=== PATIENT | male | born 1955 | race Caucasian/White ===

== ENCOUNTER 2019-03-14 10:57 | Emergency (ER) | payer OTHER ==
[2019-03-14 11:04] VITALS: BP 159/84; PULSE 69; TEMP 97.4; BMI 31.4
--- NOTE | 2019-03-14 11:37 | PDOC ---
History of Present Illness - General Chief Complaint: Injury Stated Complaint: RT ELBOW BOIL Time Seen by Provider: 03/14/19 11:19 History Source: Patient Exam Limitations: No Limitations - History of Present Illness Initial Comments: 63 yo M history CAD, HTN presents with R elbow mass that is bleeding. He states that he was seen in the wound care clinic in the past, was told that it was soft tissue, and referred to a general surgeon. That was approximately a month ago, he has not yet set up an evaluation with a surgeon. He states he was recently on vacation, was using a band to cover it, as it was unattractive to look at. He subsequently developed a wound on it, which is now bleeding. He attempted to place a gauze dressing, but it has continued to bleed. He takes aspirin and plavix. Past History - Past Medical History Allergies/Adverse Reactions: Allergies Allergy/AdvReac Type Severity Reaction Status Date / Time No Known Allergies Allergy Verified 03/14/19 10:59 Home Medications: Ambulatory Orders Diltiazem Cd [Cardizem Cd -] 120 mg PO DAILY #0 cap.cd.24h 04/09/14 Metoprolol Tartrate [Lopressor -] 100 mg PO BID #0 tablet 04/09/14 Aspirin [Adult Aspirin Regimen] 1 tab PO DAILY 03/14/19 Atorvastatin Calcium 1 tab PO HS 03/14/19 Clopidogrel Bisulfate [Clopidogrel] 1 tab PO DAILY 03/14/19 Losartan Potassium 100 mg PO DAILY 03/14/19 Cardiac Disorders: Yes (afib on eliquis- cardiac stents) COPD: No HTN: Yes Hypercholesterolemia: Yes - Immunization History Immunization Up to Date: Yes - Psycho Social/Smoking Cessation Hx Smoking History: Never smoked Have you smoked in the past 12 months: No Hx Alcohol Use: Yes (6-12) Drug/Substance Use Hx: No Substance Use Type: None Review of Systems - Review of Systems Able to Perform ROS?: Yes Comments:: GENERAL/CONSTITUTIONAL: No fever or chills. No weakness. HEAD, EYES, EARS, NOSE AND THROAT: No change in vision. No ear pain or discharge. No sore throat. MUSCULOSKELETAL: +Swelling over the R elbow with open wound, oozing blood. No neck or back pain. SKIN: +Ulcer to R elbow lesion NEUROLOGIC: No headache, vertigo, loss of consciousness, or change in strength/ sensation. ENDOCRINE: No increased thirst. No abnormal weight change. HEMATOLOGIC/LYMPHATIC: Takes ASA and plavix ALLERGIC/IMMUNOLOGIC: No hives or skin allergy. *Physical Exam - Vital Signs Last Vital Signs Temp Pulse Resp BP Pulse Ox 97.4 F L 69 18 159/84 100 03/14/19 11:00 03/14/19 11:00 03/14/19 11:00 03/14/19 11:00 03/14/19 11:00 - Physical Exam GENERAL: Awake, alert, and fully oriented, in no acute distress HEAD: No signs of trauma EYES: PERRLA, EOMI, sclera anicteric, conjunctiva clear ENT: Auricles normal inspection, hearing grossly normal, nares patent, oropharynx clear without exudates. Moist mucosa EXTREMITIES: R elbow with soft tissue mass, with ulcer present approximately 1.5 cm in diameter. +Oozing from the ulcer. FROM. Remainder of extremities with normal range of motion, no edema. No clubbing or cyanosis. No cords, erythema, or tenderness NEUROLOGICAL: Cranial nerves II through XII grossly intact. Normal speech, normal gait. Motor and sensation intact SKIN: Warm, dry, normal turgor, no rashes or lesions noted. Medical Decision Making - Medical Decision Making Surgicel placed to the ulcer, then gauze dressing. I arranged for him to follow up with Dr. Lafleur to evaluate the soft tissue mass for possible resection. Discharge - Discharge Information Problems reviewed: Yes Clinical Impression/Diagnosis: Soft tissue mass Condition: Stable Disposition: HOME - Admission No - Follow up/Referral Referrals: Jl Lafleur MD [Staff Physician] - - Patient Discharge Instructions Patient Printed Discharge Instructions: Skin Wound Additional Instructions: Please keep the dressing in place today unless it soaks through. If you need to change the bandage, you can replace the gauze and place an KARINA wrap to hold it in place (do not pull the wrap tightly, as it may worsen your condition). Follow up with Dr. Lafleur at [address] on the 1st floor at 2pm on SundayMarch 18. If you have heavy bleeding, fever, severe pain, or any other concerning symptoms , return to the ED immediately. - Post Discharge Activity
== END 2019-03-14 12:10 | disposition home or self-care (01) ==
LOC: JER 10:57
DX: R22.31 Localized swelling, mass and lump, right upper limb (principal); I25.10 Atherosclerotic heart disease of native coronary artery without angina pectoris; I10 Essential (primary) hypertension
CPT/HCPCS: 99281-25

== ENCOUNTER 2019-03-20 12:12 | Emergency (ER) | payer OTHER ==
[2019-03-20 12:34] VITALS: BP 138/79; PULSE 74; TEMP 98.4; BMI 31.4
--- NOTE | 2019-03-20 12:35 | PDOC ---
History of Present Illness - General Chief Complaint: Revisit,Wound Recheck Stated Complaint: WOUND CHECK Time Seen by Provider: 03/20/19 12:15 History Source: Patient Exam Limitations: No Limitations - History of Present Illness Initial Comments: 03/20/19 12:30 63 y/o male with wound on right elbow for many years, has a growth, has seen a surgeon Dr. Turner, went to [facility] and had it wraped. Had an MRI today and here in ER due to constant bleeding from wound. No pain. Denies fever or chills. Off Plavix for 2 days. Is this a multiple visit Asthma Patient?: No Past History - Past Medical History Allergies/Adverse Reactions: Allergies Allergy/AdvReac Type Severity Reaction Status Date / Time No Known Allergies Allergy Verified 03/20/19 12:19 Home Medications: Ambulatory Orders Diltiazem Cd [Cardizem Cd -] 120 mg PO DAILY #0 cap.cd.24h 04/09/14 Metoprolol Tartrate [Lopressor -] 100 mg PO BID #0 tablet 04/09/14 Aspirin [Adult Aspirin Regimen] 1 tab PO DAILY 03/14/19 Atorvastatin Calcium 1 tab PO HS 03/14/19 Clopidogrel Bisulfate [Clopidogrel] 1 tab PO DAILY 03/14/19 Losartan Potassium 100 mg PO DAILY 03/14/19 Cardiac Disorders: Yes (afib on eliquis- cardiac stents) COPD: No HTN: Yes Hypercholesterolemia: Yes - Immunization History Immunization Up to Date: Yes - Psycho Social/Smoking Cessation Hx Smoking History: Never smoked Have you smoked in the past 12 months: No Hx Alcohol Use: Yes Drug/Substance Use Hx: No Substance Use Type: None Review of Systems - Review of Systems Able to Perform ROS?: Yes Is the patient limited Slovenian proficient: No Constitutional: No: Chills, Fever Respiratory: No: Cough, Shortness of Breath Musculoskeletal: No: Back Pain, Joint Pain Integumentary: Yes: Lesions. No: Bruising, Erythema All Other Systems: Reviewed and Negative *Physical Exam - Vital Signs Last Vital Signs Temp Pulse Resp BP Pulse Ox 98.4 F 74 16 138/79 99 03/20/19 12:13 03/20/19 12:13 03/20/19 12:13 03/20/19 12:13 03/20/19 12:13 - Physical Exam General Appearance: Yes: Nourished, Appropriately Dressed. No: Apparent Distress HEENT: positive: Normal ENT Inspection, Normal Voice Neck: positive: Trachea midline, Normal Thyroid, Supple. negative: Tender Respiratory/Chest: positive: Lungs Clear, Normal Breath Sounds. negative: Chest Tender Cardiovascular: positive: Regular Rhythm, Regular Rate, S1, S2. negative: Edema , JVD, Murmur Vascular Pulses: Femoral (R): 4+, Femoral (L): 4+, Carotid (R): 4+, Carotid (L) : 4+, Dorsalis-Pedis (R): 4+, Doralis-Pedis (L): 4+ Lymphatic: negative: Adenopathy, Tenderness, Other Extremity: positive: Normal Capillary Refill. 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, Fully Oriented, Alert, Normal Mood/ Affect, Normal Response, Motor Strength 5/ ED Treatment Course - ADDITIONAL ORDERS Additional order review: 03/20/19 12:33 Right elbow wound non infected, will need wound clinic follow up and surgical removal Will rewrap Return as needed Discharge - Discharge Information Problems reviewed: Yes Clinical Impression/Diagnosis: Soft tissue mass Condition: Good Disposition: HOME - Admission No - Follow up/Referral Referrals: Gil Borja MD [Primary Care Provider] - - Patient Discharge Instructions Patient Printed Discharge Instructions: DI for Wound Infection Additional Instructions: Keep area wrapped Follow up with specialist for removal and await MRI results Call PMD to see when to restart Plavix If worsen return to ER - Post Discharge Activity
== END 2019-03-20 12:40 | disposition home or self-care (01) ==
LOC: FER 12:12
DX: Z48.01 Encounter for change or removal of surgical wound dressing (principal)
CPT/HCPCS: 99281-25

== ENCOUNTER 2019-03-25 11:09 | Inpatient (IN) | payer OTHER ==
--- NOTE | 2019-03-25 12:16 | PDOC ---
History of Present Illness - General Chief Complaint: Wound Stated Complaint: SENT FROM WOUND CARE Time Seen by Provider: 03/25/19 12:10 - History of Present Illness Initial Comments: 03/25/19 15:50 63 y/o M hx of HTN, afib presents to the ER with right forearem swelling. He has had a right olecranon mass for years and devellped a wound at the side last month. Previous MRI and x-rays had been done showing a non-calcified mass. within the last 2 days, he has had increased forearm swelling, erythema and tenderness. He endorses chills with no fevers. Past History - Past Medical History Allergies/Adverse Reactions: Allergies Allergy/AdvReac Type Severity Reaction Status Date / Time No Known Allergies Allergy Verified 03/25/19 11:31 Home Medications: Ambulatory Orders Diltiazem Cd [Cardizem Cd -] 120 mg PO DAILY #0 cap.cd.24h 04/09/14 Aspirin [Adult Aspirin Regimen] 1 tab PO DAILY 03/14/19 Atorvastatin Calcium 1 tab PO HS 03/14/19 Losartan Potassium 100 mg PO DAILY 03/14/19 Clopidogrel Bisulfate [Plavix] 75 mg PO DAILY 03/25/19 Metoprolol Tartrate [Lopressor -] 100 mg PO DAILY 03/25/19 Amoxicillin/Potassium Clav [Augmentin 875-125 Tablet] 1 each PO BID 10 Days #20 tablet MDD two 03/31/19 Acetaminophen [Tylenol] 650 mg PO Q6H #30 capsule MDD 4 04/01/19 Cardiac Disorders: Yes (afib on eliquis- cardiac stents) COPD: No HTN: Yes Hypercholesterolemia: Yes - Immunization History Immunization Up to Date: Yes - Psycho Social/Smoking Cessation Hx Smoking History: Never smoked Have you smoked in the past 12 months: No Information on smoking cessation initiated: No Hx Alcohol Use: No Drug/Substance Use Hx: No Substance Use Type: None *Physical Exam - Vital Signs Last Vital Signs Temp Pulse Resp BP Pulse Ox 99.7 F H 66 17 119/54 L 96 03/25/19 11:32 03/25/19 11:32 03/25/19 11:32 03/25/19 11:32 03/25/19 11:32 - Physical Exam 03/25/19 13:12 GENERAL: Awake, alert, and fully oriented, in no acute distress HEAD: No signs of trauma, normocephalic, atraumatic EYES: PERRLA, EOMI, sclera anicteric, conjunctiva clear ENT: Auricles normal inspection, hearing grossly normal, nares patent, oropharynx clear without exudates. Moist mucosa NECK: Normal ROM, supple, no lymphadenopathy, JVD, or masses LUNGS: No distress, speaks full sentences, clear to auscultation bilaterally HEART: Irregular rhythm, normal rate. normal S1 and S2, systolic murmur, rubs or gallops, peripheral pulses normal and equal bilaterally. ABDOMEN: Soft, nontender, normoactive bowel sounds. No guarding, no rebound. No masses EXTREMITIES : Normal inspection, Normal range of motion, no edema. No clubbing or cyanosis NEUROLOGICAL: Cranial nerves II through XII grossly intact. Normal speech, normal gait, no focal sensorimotor deficits SKIN: Erythma of right arm ED Treatment Course - LABORATORY CBC & Chemistry Diagram: 04/01/19 06:35 04/01/19 06:35 Medical Decision Making - Medical Decision Making 03/25/19 13:44 Cellulitis vs osteomyeltits secondary to right elbow mass with central wound -cbc, cmp, blood culture, wound culture -x-rays -mri done 5 days ago results as below large heterogenous mass of the posterior aspect of elbow with cystic changes in the central aspect. nonspecific in etiology may represent a synovial tumor of the olecranon bursa or mass in subcutaneous fat. -IV vancomycin 03/25/19 14:25 CXR: no acute chest pathology Elbow x-ray: no acute fracture, dislocation/radiopaque foreign body, non calcifiedmass forearm x-ray/: olecranon soft tissue swelling with arthritic changes, no sign of blastic or lytic changes hand x-ray: degenerative changes with partially flexed digits and a healed fracure deformity of the 4th metacarpal. vascular calcifications and soft tissue swellilng -admitted for cellulitis treament 04/02/19 21:49 Discharge - Discharge Information Problems reviewed: Yes Clinical Impression/Diagnosis: Cellulitis Condition: Improved Disposition: HOME - Follow up/Referral - Patient Discharge Instructions - Post Discharge Activity
[2019-03-25 13:33] LABS: BASO % 0.4 % (0-2.0); EOS % 0.6 % (0-4.5); HEMATOCRIT 31.1 % (35.4-49); HEMOGLOBIN 10.8 GM/dL (11.7-16.9); MCH 34.6 pg (25.7-33.7); MCHC 34.8 g/dl (32.0-35.9); MEAN CELL VOLUME 99.4 fl (80-96); MEAN PLT VOLUME 8.3 fl (7.5-11.1); MONO % 11.3 % (3.8-10.2); NEUT % 77.7 % (42.8-82.8); PLATELET COUNT 137 K/MM3 (134-434); RBC 3.13 M/mm3 (4.00-5.60); RDW 12.7 % (11.9-15.9); WHITE BLOOD COUNT 10.2 K/mm3 (4.0-10.0)
[2019-03-25] MEDS ORDERED: VANCOMYCIN 1 GM in D5W (PRE-DOCKED) 1,000 MG/250 ML IVPB ONE (13:43)
[2019-03-25 13:53] LABS: INR 1.09 (0.83-1.09); PROTHROMBIN TIME (PATIENT) 12.9 SEC (9.7-13.0)
[2019-03-25 13:56] LABS: ACTIVATED PTT 33.1 SECONDS (25.2-36.5)
[2019-03-25] MEDS ORDERED: VANCOMYCIN 1 GRAM (PRE-DOCKED) 1,000 MG/250 ML BAG IVPB ONE (14:53)
[2019-03-25 16:05] LABS: ERYTHROCYTE SEDIMENTATION RATE 107 mm/hr (0-20)
--- NOTE | 2019-03-25 16:05 | PDOC ---
Attending Attestation - Resident Resident Name: Mag Scott - ED Attending Attestation I have performed the following: I have examined & evaluated the patient, The case was reviewed & discussed with the resident, I agree w/resident's findings & plan - HPI HPI: 03/25/19 16:01 63-year-old male sent from wound clinic for treatment of a now infected chronic right elbow mass, previously imaged but recently ruptured with serosanguineous discharge, now with swelling and discomfort to the forearm and hand. - Physicial Exam PE: 03/25/19 16:02 Low-grade fever, vitals otherwise stable Large right elbow soft tissue mass with ulcerated skin and serosanguineous/ purulent discharge. Soft tissue swelling with erythema and warmth circumferentially distal to the elbow including the hand. Neurovascular intact distally with full range of motion of elbow/wrist/hand joints - Medical Decision Making 03/25/19 16:03 63-year-old male with chronic soft tissue mass of right elbow now with superimposed infection and right arm cellulitis. Low-grade fever but hemodynamically stable and neurovascularly intact. labs, wound cx doppler to r/o mechanical venous obstruction iv abx admit for cellulitis and further surgical evaluation Heart Score/ECG Review #1 ECG reviewed & interpreted by me at: 01:53 General ECG Interpretation: Sinus Rhythm, Normal Rate (71), Normal Intervals ( qtc 417), No acute ischemic changes
[2019-03-25 16:16] LABS: ALBUMIN 3.5 g/dl (3.4-5.0); BILIRUBIN,TOTAL 1.4 mg/dL (0.2-1); BLOOD UREA NITROGEN 19.4 mg/dL (7-18); CALCIUM 8.9 mg/dL (8.5-10.1); CREATININE 1.7 mg/dL (0.55-1.3); POTASSIUM 4.6 mmol/L (3.5-5.1); TOT PROT 7.3 g/dl (6.4-8.2)
[2019-03-25] MEDS: SODIUM CHLORIDE 1,000 ML IV SCH (17:31)
[2019-03-25] MEDS: AMPICILLIN NA/SULBACTAM NA 3 GM in SODIUM CHLORIDE 100 ML IVPB SCH ×2 (18:38→22:53)
[2019-03-25] MEDS: ATORVASTATIN CA 80 MG TABLET (FP) PO SCH (22:53)
[2019-03-25 23:27] VITALS: BMI 32.5
[2019-03-25] MEDS ORDERED: PNEUMOC 13-VAL CONJ-DIP CRM/PF 0.5 ML DISP.SYRIN IM ONE (23:27)
[2019-03-25] MEDS ORDERED: PT OWN MED DRAWER 7, Y5N ONE (23:34)
[2019-03-26] MEDS: ACETAMINOPHEN 325 MG TABLET (FP) PO PRN (02:00)
[2019-03-26] MEDS ORDERED: PT OWN MED DRAWER 7, Y5N ONE ×5 (02:19→20:16)
[2019-03-26] MEDS: AMPICILLIN NA/SULBACTAM NA 3 GM in SODIUM CHLORIDE 100 ML IVPB SCH ×4 (02:45→21:55)
[2019-03-26] MEDS ORDERED: VANCOMYCIN 1 GRAM (PRE-DOCKED) 1,000 MG/250 ML BAG IVPB SCH (04:00)
--- NOTE | 2019-03-26 08:14 | HP ---
Admitting History and Physical - Primary Care Physician PCP: Gil Borja - Admission Chief Complaint: Right upper extremity pain and swelling History of Present Illness: 63 years male history of hypertension, CAD status post 2 stent, hypercholesteremia, chronic right elbow swelling/soft tissue mass as per patient in December the swelling started leaking, on March 14, 2019 evaluated ED and he was referred to wound care clinic subsequently seen by Dr. Lafleur underwent MRI on March 20 2019 that shows large effusion large suspicious mass posterior to elbow, non-calcified with cystic change in the center possibility of synovitis/subcutaneous/olecranon mass or tumor. That got infected currently following with the wound care center, recently had MRI right elbow that shows soft tissue swelling at the elbow posteriorly with central liquefaction, yesterday in wound care center worsening pain, erythema and swelling noticed transferred to ED for further evaluation and IV antibiotics patient recently has no antibiotic, on arrival mild elevated WBC, right upper extremity Doppler ultrasound negative for any DVT admitted for IV antibiotic and evaluation by orthopedics History Source: Patient - Smoking History Smoking history: Never smoked Have you smoked in the past 12 months: No - Alcohol/Substance Use Hx Alcohol Use: No Home Medications - Allergies Allergies/Adverse Reactions: Allergies Allergy/AdvReac Type Severity Reaction Status Date / Time No Known Allergies Allergy Verified 03/25/19 11:31 - Home Medications Home Medications: Ambulatory Orders Diltiazem Cd [Cardizem Cd -] 120 mg PO DAILY #0 cap.cd.24h 04/09/14 Aspirin [Adult Aspirin Regimen] 1 tab PO DAILY 03/14/19 Atorvastatin Calcium 1 tab PO HS 03/14/19 Losartan Potassium 100 mg PO DAILY 03/14/19 Clopidogrel Bisulfate [Plavix] 75 mg PO DAILY 03/25/19 Metoprolol Tartrate [Lopressor -] 100 mg PO DAILY 03/25/19 Family Medical History Family History: Unremarkable Review of Systems - Review of Systems Constitutional: reports: Fever. denies: Lethargy, Malaise, Night Sweats Eyes: denies: Blind Spots, Blurred Vision, Double Vision, Eye Pain HENT: denies: Difficult Swallowing, Ear Discharge, Ear Pain, Epistaxis Neck: denies: Decreased ROM, Lumps, Pain on Movement, Stiffness Cardiovascular: denies: Chest Pain, Edema, Palpitations, Shortness of Breath Respiratory: denies: Cough, Exercise Intolerance, Hemoptysis, Orthopnea Gastrointestinal: denies: Abdominal Pain, Bloating, Constipation, Diarrhea Genitourinary: denies: Burning, Discharge, Dysuria, Flank Pain Musculoskeletal: reports: Joint Pain (Right elbow cellulitis and discharging swelling). denies: Back Pain, Crepitus, Decreased ROM, Extremity Pain Integumentary: reports: Erythema (Right upper extremity) Neurological: denies: Change in LOC, Change in Speech, Confusion Endocrine: denies: Excessive Sweating, Flushing Hematology/Lymphatic: denies: Easily Bruised, Excessive Bleeding, Swollen Glands Psychiatric: denies: Altered Sleep Pattern, Anxiety, Depression Physical Examination Vital Signs: Vital Signs Temperature 98.2 F 03/26/19 06:00 Pulse Rate 79 03/26/19 06:00 Respiratory Rate 18 03/26/19 06:00 Blood Pressure 134/83 03/26/19 06:00 O2 Sat by Pulse Oximetry (%) 99 03/26/19 04:54 General: Middle-aged, comfortable, not in distress HEENT; mucous membranes moist, no anemia, no jaundice, PERRLA, no nystagmus Neck: No JVD, supple, no bruit, thyroid palpably normal, normal carotid pulsations. Chest: Nontender, clear to auscultation bilaterally/bilateral wheezing/ bilateral basal rales. CVS: S1-S2 regular/irregular no murmur/gallop/rub Abdomen: Nondistended, soft, bowel sounds present. Extremities: Right elbow swelling with discharge, right upper extremity edema and tenderness, no edema feet., No calf tenderness, pulses present PROPERTY COORDINATOR: AO X3 , no gross motor sensory deficit Labs: CBC, BMP 03/25/19 12:55 03/25/19 12:55 Imaging - Results Chest X-ray: Report Reviewed (No acute changes) X-ray: Report Reviewed (Right elbow: Soft tissue swelling) MRI: Report Reviewed (Right elbow: March 20 2019, large soft tissue mass posterior to right elbow homogeneous, central cystic changes.) EKG: Report Reviewed (Normal sentiment [address]-T changes.) Problem List - Problems (1) Cellulitis Assessment/Plan: Continue IV Unasyn, vancomycin, wound care consult, ID consult, elevation of pain, pain control follow-up cultures we will follow-up orthopedic recommendation Problems reviewed: Yes Code(s): L03.90 - CELLULITIS, UNSPECIFIED (2) Coronary artery disease Assessment/Plan: Status post stent continue Plavix, beta-blockers and statin Problems reviewed: Yes Code(s): I25.10 - ATHSCL HEART DISEASE OF [place] CORONARY ARTERY W/O ANG PCTRS (3) Hypertension Assessment/Plan: Controlled continue home medication Problems reviewed: Yes Code(s): I10 - ESSENTIAL (PRIMARY) HYPERTENSION (4) Hypercholesterolemia Assessment/Plan: Continues to Problems reviewed: Yes Code(s): E78.00 - PURE HYPERCHOLESTEROLEMIA, UNSPECIFIED (5) Atrial fibrillation with RVR Assessment/Plan: Not on anticoagulation rate controlled continue diltiazem and metoprolol Problems reviewed: Yes Code(s): I48.91 - UNSPECIFIED ATRIAL FIBRILLATION (6) Soft tissue mass Assessment/Plan: Right elbow soft tissue mass we will follow-up orthopedic recommendations. Problems reviewed: Yes Code(s): M79.89 - OTHER SPECIFIED SOFT TISSUE DISORDERS Assessment/Plan Active Medications Acetaminophen (Tylenol -) 650 mg PO Q6H PRN PRN Reason: PAIN LEVEL 5-10 Last Admin: 03/26/19 02:00 Dose: 650 mg Aspirin (Ecotrin -) 81 mg PO DAILY [facility] Atorvastatin Calcium (Lipitor -) 80 mg PO HS [facility] Last Admin: 03/25/19 22:53 Dose: 80 mg Clopidogrel Bisulfate (Plavix -) 75 mg PO DAILY [facility] Diltiazem HCl (Cardizem Cd -) 120 mg PO DAILY [facility] Enoxaparin Sodium (Lovenox -) 40 mg SQ DAILY [facility] Ampicillin Sodium/Sulbactam (Sodium 3 gm/ Sodium Chloride) 100 mls @ 200 mls/ hr IVPB Q6H-IV [facility] Last Admin: 03/26/19 02:45 Dose: 200 mls/hr Vancomycin HCl 1,000 mg/ (Dextrose) 250 mls @ 166.667 mls/hr IVPB Q12H [facility]; Protocol Sodium Chloride (Normal Saline -) 1,000 mls @ 75 mls/hr IV ASDIR [facility] Last Admin: 03/25/19 17:31 Dose: 75 mls/hr Vancomycin HCl (Vancomycin (Pre-Docked)) 1,000 mg in 250 mls @ 166.667 mls/hr IVPB Q12H [facility]; Protocol Stop: 03/26/19 17:29 Last Admin: 03/26/19 04:20 Dose: 166.667 mls/hr Losartan Potassium (Cozaar -) 100 mg PO DAILY [facility] Metoprolol Tartrate (Lopressor -) 100 mg PO DAILY [facility] Pneumococcal 13-Valent Conj Vacc (Prevnar 13 Syringe -) 0.5 ml IM .ONCE ONE Stop: 03/25/19 23:28
[2019-03-26 08:38] LABS: BASO % 0.4 % (0-2.0); EOS % 1.7 % (0-4.5); HEMATOCRIT 28.3 % (35.4-49); HEMOGLOBIN 9.9 GM/dL (11.7-16.9); LYMPH % 15.3 % (8-40); MCH 34.5 pg (25.7-33.7); MCHC 34.8 g/dl (32.0-35.9); MEAN CELL VOLUME 99.2 fl (80-96); MEAN PLT VOLUME 8.1 fl (7.5-11.1); MONO % 11.4 % (3.8-10.2); NEUT % 71.2 % (42.8-82.8); PLATELET COUNT 108 K/MM3 (134-434); RBC 2.86 M/mm3 (4.00-5.60); RDW 12.6 % (11.9-15.9)
[2019-03-26 08:56] LABS: BLOOD UREA NITROGEN 19.6 mg/dL (7-18); CALCIUM 8.3 mg/dL (8.5-10.1); CREATININE 1.4 mg/dL (0.55-1.3)
[2019-03-26] MEDS ORDERED: PATIENT'S OWN MEDICATION (NON-FORMULARY) (Losartan Potassium [Losartan Potassium] 100 MG) PO SCH (10:00)
[2019-03-26] MEDS ORDERED: PNEUMOCOCCAL 23 VACCINE 0.5 ML VIAL IM ONE (10:00)
[2019-03-26] MEDS ORDERED: CLOPIDOGREL BISULFATE 75 MG TABLET (FP) PO SCH (10:00)
[2019-03-26] MEDS ORDERED: ENOXAPARIN NA (PORCINE) 40 MG/0.4 ML DISP.SYRIN SQ SCH (10:00)
[2019-03-26] MEDS ORDERED: ASPIRIN COATED 81 MG TABLET.EC PO SCH (10:00)
[2019-03-26] MEDS: METOPROLOL TARTRATE 50 MG TABLET (FP) PO SCH (10:02)
[2019-03-26] MEDS: LOSARTAN POTASSIUM 50 MG TABLET (FP) PO SCH (10:03)
--- NOTE | 2019-03-26 10:46 | CON.ID ---
Consult Consult Specialty:: infectious diseases Referred by:: christoph moreno Reason for Consultation:: swelling and cellulitis of the arm - Alcohol/Substance Use Hx Alcohol Use: No - Smoking History Smoking history: Never smoked Have you smoked in the past 12 months: No Home Medications - Allergies Allergies/Adverse Reactions: Allergies Allergy/AdvReac Type Severity Reaction Status Date / Time No Known Allergies Allergy Verified 03/25/19 11:31 - Home Medications Home Medications: Ambulatory Orders Diltiazem Cd [Cardizem Cd -] 120 mg PO DAILY #0 cap.cd.24h 04/09/14 Aspirin [Adult Aspirin Regimen] 1 tab PO DAILY 03/14/19 Atorvastatin Calcium 1 tab PO HS 03/14/19 Losartan Potassium 100 mg PO DAILY 03/14/19 Clopidogrel Bisulfate [Plavix] 75 mg PO DAILY 03/25/19 Metoprolol Tartrate [Lopressor -] 100 mg PO DAILY 03/25/19 Physical Exam Vital Signs: Vital Signs Temperature 98.1 F 03/26/19 09:31 Pulse Rate 101 H 03/26/19 09:31 Respiratory Rate 18 03/26/19 09:31 Blood Pressure 127/65 03/26/19 09:31 O2 Sat by Pulse Oximetry (%) 99 03/26/19 04:54 Labs: CBC, BMP 03/26/19 07:10 03/26/19 07:10
--- NOTE | 2019-03-26 11:01 | EKG ---
Test Reason : Blood Pressure : / mmHG Vent. Rate : 071 BPM Atrial Rate : 071 BPM P-R Int : 166 ms QRS Dur : 086 ms QT Int : 384 ms P-R-T Axes : 036 -05 017 degrees QTc Int : 417 ms NORMAL SINUS RHYTHM NORMAL ECG WHEN COMPARED WITH ECG OF 03-APR-2014 23:32, SINUS RHYTHM HAS REPLACED ATRIAL FIBRILLATION Confirmed by Chong Pepe MD ([id number]) on 03/26/2019 11:01:13 AM Referred By: Confirmed By:Chong Pepe MD
[2019-03-26] MEDS: VANCOMYCIN 1,000 MG in DEXTROSE 5%-WATER - 250 ML IVPB SCH ×2 (13:18→13:19)
--- NOTE | 2019-03-26 13:34 | PN ---
Progress Note (short form) - Note Progress Note: Pt seen and examined. He is a 63 year old right hand dominant male patient who hs had a large right elbow olecranon bursitis/mass for the past 8-10 years. It recently became infected. He came to the [facility] wound care clinic. Now he has been admitted, and is on IV Vancomycin and Unasyn. He states the clinical picture has improved. He was on Elquis until 2 days ago, got Plavix today, and is on SQ Lovenox AVSS although HR now 101 WBC decreased to 7.0 ESR 107 on 03-25-2019 wound cultures + PE Pt A&O x 3, not septic, appears very comfortable RUE is grossly NVI Good ROM of the right elbow, forearm, wrist, fingers + open wound, about 2" x 2" on the right olecranon bursa, + oozing pus, looks to be chronically infected The olecranon bursa is huge + chronic skin changes. vascular compromise over the bursa, dusky skin Wider area of cellulitis X-rays Show a large soft tissue mass, no acute bony pathology Imp 63 yo M with a long standing, chronic olecranon bursitis, perhaps something more, also chronically infected. Rec I am recommending surgery, olecranon bursa/mass excision. Tentatively put on the schedule for tomorrow 8am. Will see if OR can accomodate. Details of the surgery discussed with pt. He understands there could be significant skin dehiscence, wound breakdown, continued infection, need for additional surgery including skin grafts, wound care , etc. We need medical clearance for tomorrow. He is still on Plavix and Lovenox and was on Eliquis until very recently so we may have to delay surgery until yolanda am, or even next week. There is no emergency, he has had this for 8-10 years. NPO after midnight tonight
[2019-03-26] MEDS: VANCOMYCIN HCL 1,500 MG in DEXTROSE 5%-WATER - 500 ML IVPB SCH (14:40)
[2019-03-26] MEDS: SODIUM CHLORIDE 1,000 ML IV SCH (19:06)
[2019-03-26] MEDS: ATORVASTATIN CA 80 MG TABLET (FP) PO SCH (22:03)
[2019-03-27] MEDS: ACETAMINOPHEN 325 MG TABLET (FP) PO PRN ×2 (00:12→23:34)
[2019-03-27] MEDS ORDERED: PT OWN MED DRAWER 7, Y5N ONE ×5 (03:49→21:43)
[2019-03-27] MEDS: AMPICILLIN NA/SULBACTAM NA 3 GM in SODIUM CHLORIDE 100 ML IVPB SCH ×4 (03:53→21:56)
[2019-03-27] MEDS: SODIUM CHLORIDE 1,000 ML IV SCH ×2 (03:54→22:03)
--- NOTE | 2019-03-27 09:21 | PN ---
Progress Note, Physician Chief Complaint: Feels less pain and swelling History of Present Illness: 63 years male history of hypertension, CAD status post 2 stent, hypercholesteremia, chronic right elbow swelling/soft tissue mass as per patient in December the swelling started leaking, on March 14, 2019 evaluated ED and he was referred to wound care clinic subsequently seen by Dr. Lafleur underwent MRI on March 20 2019 that shows large effusion large suspicious mass posterior to elbow, non-calcified with cystic change in the center possibility of synovitis/subcutaneous/olecranon mass or tumor. That got infected currently following with the wound care center, recently had MRI right elbow that shows soft tissue swelling at the elbow posteriorly with central liquefaction, admitted with worsening edema and cellulitis with discharge, evaluated by orthopedic surgery recommended I&D. - Current Medication List Current Medications: Active Medications Acetaminophen (Tylenol -) 650 mg PO Q6H PRN PRN Reason: PAIN LEVEL 5-10 Last Admin: 03/27/19 00:12 Dose: 650 mg Atorvastatin Calcium (Lipitor -) 80 mg PO HS [facility] Last Admin: 03/26/19 22:03 Dose: 80 mg Diltiazem HCl (Cardizem Cd -) 120 mg PO DAILY [facility] Last Admin: 03/26/19 10:24 Dose: 120 mg Ampicillin Sodium/Sulbactam (Sodium 3 gm/ Sodium Chloride) 100 mls @ 200 mls/ hr IVPB Q6H-IV [facility] Last Admin: 03/27/19 03:53 Dose: 200 mls/hr Sodium Chloride (Normal Saline -) 1,000 mls @ 75 mls/hr IV ASDIR [facility] Last Admin: 03/27/19 03:54 Dose: 75 mls/hr Vancomycin HCl 1,500 mg/ (Dextrose) 500 mls @ 250 mls/hr IVPB Q24H [facility]; Protocol Last Admin: 03/26/19 14:40 Dose: 250 mls/hr Losartan Potassium (Cozaar -) 100 mg PO DAILY [facility] Last Admin: 03/26/19 10:03 Dose: 100 mg Metoprolol Tartrate (Lopressor -) 100 mg PO DAILY [facility] Last Admin: 03/26/19 10:02 Dose: 100 mg - Objective Vital Signs: Vital Signs Temperature 98.1 F 03/27/19 05:47 Pulse Rate 71 03/27/19 05:47 Respiratory Rate 16 03/27/19 05:47 Blood Pressure 125/70 03/27/19 05:47 O2 Sat by Pulse Oximetry (%) 97 03/26/19 21:00 General: Middle-aged, comfortable, not in distress HEENT; mucous membranes moist, no anemia, no jaundice, PERRLA, no nystagmus Neck: No JVD, supple, no bruit, thyroid palpably normal, normal carotid pulsations. Chest: Nontender, clear to auscultation bilaterally/bilateral wheezing/ bilateral basal rales. CVS: S1-S2 regular/irregular no murmur/gallop/rub Abdomen: Nondistended, soft, bowel sounds present. 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 Code(s): L03.90 - CELLULITIS, UNSPECIFIED (2) Coronary artery disease Assessment/Plan: Status post stent will hold Plavix and aspirin, beta-blockers and statin, will consult cardiology Code(s): I25.10 - ATHSCL HEART DISEASE OF [place] CORONARY ARTERY W/O ANG PCTRS (3) Hypertension Assessment/Plan: Controlled continue home medication Code(s): I10 - ESSENTIAL (PRIMARY) HYPERTENSION (4) Hypercholesterolemia Assessment/Plan: Continues to Code(s): E78.00 - PURE HYPERCHOLESTEROLEMIA, UNSPECIFIED (5) Atrial fibrillation with RVR Assessment/Plan: Not on anticoagulation rate controlled continue diltiazem and metoprolol Problems reviewed: Yes Code(s): I48.91 - UNSPECIFIED ATRIAL FIBRILLATION (6) Soft tissue mass Code(s): M79.89 - OTHER SPECIFIED SOFT TISSUE DISORDERS
[2019-03-27] MEDS: LOSARTAN POTASSIUM 50 MG TABLET (FP) PO SCH (09:27)
[2019-03-27] MEDS: METOPROLOL TARTRATE 50 MG TABLET (FP) PO SCH (09:27)
[2019-03-27] MEDS ORDERED: VANCOMYCIN HCL 1,500 MG in DEXTROSE 5%-WATER - 500 ML IVPB SCH (10:00)
[2019-03-27 10:26] LABS: BASO % 0.3 % (0-2.0); HEMATOCRIT 28.5 % (35.4-49); LYMPH % 10.8 % (8-40); MCH 34.7 pg (25.7-33.7); MEAN CELL VOLUME 99.2 fl (80-96); MEAN PLT VOLUME 7.9 fl (7.5-11.1); MONO % 9.8 % (3.8-10.2); NEUT % 77.1 % (42.8-82.8); PLATELET COUNT 135 K/MM3 (134-434); RBC 2.88 M/mm3 (4.00-5.60); RDW 12.5 % (11.9-15.9); WHITE BLOOD COUNT 6.6 K/mm3 (4.0-10.0)
[2019-03-27 10:55] LABS: ALBUMIN 3.4 g/dl (3.4-5.0); BLOOD UREA NITROGEN 18.6 mg/dL (7-18); CALCIUM 8.8 mg/dL (8.5-10.1); CREATININE 1.3 mg/dL (0.55-1.3)
--- NOTE | 2019-03-27 11:17 | PN ---
Progress Note, Physician History of Present Illness: stable no new issues patient for surgery ortho note noted - Current Medication List Current Medications: Active Medications Acetaminophen (Tylenol -) 650 mg PO Q6H PRN PRN Reason: PAIN LEVEL 5-10 Last Admin: 03/27/19 00:12 Dose: 650 mg Atorvastatin Calcium (Lipitor -) 80 mg PO HS [facility] Last Admin: 03/26/19 22:03 Dose: 80 mg Diltiazem HCl (Cardizem Cd -) 120 mg PO DAILY [facility] Last Admin: 03/27/19 09:27 Dose: 120 mg Ampicillin Sodium/Sulbactam (Sodium 3 gm/ Sodium Chloride) 100 mls @ 200 mls/ hr IVPB Q6H-IV [facility] Last Admin: 03/27/19 09:53 Dose: 200 mls/hr Sodium Chloride (Normal Saline -) 1,000 mls @ 75 mls/hr IV [facility] Last Admin: 03/27/19 03:54 Dose: 75 mls/hr Vancomycin HCl 1,500 mg/ (Dextrose) 500 mls @ 250 mls/hr IVPB Q24H [facility]; Protocol Last Admin: 03/26/19 14:40 Dose: 250 mls/hr Losartan Potassium (Cozaar -) 100 mg PO DAILY [facility] Last Admin: 03/27/19 09:27 Dose: 100 mg Metoprolol Tartrate (Lopressor -) 100 mg PO DAILY [facility] Last Admin: 03/27/19 09:27 Dose: 100 mg - Objective Vital Signs: Vital Signs Temperature 98.3 F 03/27/19 10:26 Pulse Rate 89 03/27/19 10:26 Respiratory Rate 20 03/27/19 10:26 Blood Pressure 137/68 03/27/19 10:26 O2 Sat by Pulse Oximetry (%) 98 03/27/19 09:00 Constitutional: Yes: No Distress, Calm Cardiovascular: Yes: S1, S2 Respiratory: Yes: Regular, CTA Bilaterally Gastrointestinal: Yes: Normal Bowel Sounds, Soft Musculoskeletal: Yes: Other Extremities: Yes: Other (olecrenon bursitis/infected) Neurological: Yes: Alert, Oriented Psychiatric: Yes: Alert, Oriented Labs: CBC, BMP 03/27/19 09:50 03/27/19 09:50 INR, PTT INR 1.09 (0.83-1.09) 03/25/19 12:55 Assessment/Plan Problem List - Problems (1) Cellulitis Problems reviewed: Yes Code(s): L03.90 - CELLULITIS, UNSPECIFIED (2) Coronary artery disease Problems reviewed: Yes Code(s): I25.10 - ATHSCL HEART DISEASE OF [place] CORONARY ARTERY W/O ANG PCTRS (3) Hypertension Problems reviewed: Yes Code(s): I10 - ESSENTIAL (PRIMARY) HYPERTENSION (4) Hypercholesterolemia Problems reviewed: Yes Code(s): E78.00 - PURE HYPERCHOLESTEROLEMIA, UNSPECIFIED (5) Atrial fibrillation with RVR Problems reviewed: Yes Code(s): I48.91 - UNSPECIFIED ATRIAL FIBRILLATION (6) Soft tissue mass Problems reviewed: Yes Code(s): M79.89 - OTHER SPECIFIED SOFT TISSUE DISORDERS plan awaiting for surgery ct abx cx reports rest as per the team
--- NOTE | 2019-03-27 11:39 | PN ---
Progress Note (short form) - Note Progress Note: Ortho Pt seen and examined- right chronic infected olecranon bursitis Selected Entries 03/27/19 10:26 Temperature 98.3 F Pulse Rate 89 Respiratory 20 Rate Blood Pressure 137/68 Laboratory Tests 03/27/19 09:50 WBC 6.6 Hgb 10.0 L Hct 28.5 L Plt Count 135 D dressing c/d/i, nvi a/p OR tomorrow for right elbow I&D NPO after midnight surgical clearance d/w Dr. Chairez
[2019-03-27] MEDS: VANCOMYCIN HCL 1,500 MG in DEXTROSE 5%-WATER - 500 ML IVPB SCH (13:13)
[2019-03-27] MEDS: ATORVASTATIN CA 80 MG TABLET (FP) PO SCH (21:56)
[2019-03-28] MEDS ORDERED: PT OWN MED DRAWER 7, Y5N ONE ×3 (01:46→14:48)
[2019-03-28] MEDS: AMPICILLIN NA/SULBACTAM NA 3 GM in SODIUM CHLORIDE 100 ML IVPB SCH ×5 (02:10→21:34)
[2019-03-28] MEDS ORDERED: ROPIVACAINE HCL 0.5% 30ML VIAL ONE ×2 (07:26→07:42)
[2019-03-28] MEDS ORDERED: MIDAZOLAM HCL 2 MG/2 ML SINGLE DOSE VIAL ONE ×3 (07:27→07:31)
[2019-03-28] MEDS ORDERED: LIDOCAINE HCL/PF 2% SDV 5ML VIAL ONE (07:30)
[2019-03-28] MEDS ORDERED: SUCCINYLCHOLINE CHLORIDE 200 MG/10 ML SYRINGE ONE (07:31)
[2019-03-28] MEDS ORDERED: EPHEDRINE SULFATE/0.9% NACL/PF 50 MG/10 ML SYRINGE NR ONE (07:31)
[2019-03-28] MEDS ORDERED: PROPOFOL 20 ML ONE ×2 (07:31)
[2019-03-28] MEDS ORDERED: DEXAMETHASONE SOD PHOSPHATE/PF 10 MG/ML SDV ONE (07:42)
[2019-03-28 07:55] LABS: BASO % 0.5 % (0-2.0); EOS % 3.3 % (0-4.5); HEMATOCRIT 30.4 % (35.4-49); HEMOGLOBIN 10.5 GM/dL (11.7-16.9); MCH 34.2 pg (25.7-33.7); MCHC 34.6 g/dl (32.0-35.9); MEAN CELL VOLUME 98.8 fl (80-96); MEAN PLT VOLUME 7.7 fl (7.5-11.1); MONO % 11.1 % (3.8-10.2); NEUT % 69.1 % (42.8-82.8); PLATELET COUNT 143 K/MM3 (134-434); RBC 3.07 M/mm3 (4.00-5.60); RDW 12.2 % (11.9-15.9); WHITE BLOOD COUNT 6.1 K/mm3 (4.0-10.0)
[2019-03-28] MEDS ORDERED: LIDOCAINE HCL 1%, 10 MG/ML (20ML VIAL) ONE (08:06)
[2019-03-28] MEDS ORDERED: oxyCODONE HCL 5 MG TABLET PO PRN ×2 (08:06→14:51)
[2019-03-28 08:19] LABS: BLOOD UREA NITROGEN 16.3 mg/dL (7-18); CALCIUM 9.4 mg/dL (8.5-10.1); CREATININE 1.2 mg/dL (0.55-1.3); POTASSIUM 4.1 mmol/L (3.5-5.1)
[2019-03-28] MEDS ORDERED: HYDROmorphone HCl 2 MG/ML VIAL ONE (08:31)
[2019-03-28] MEDS ORDERED: ONDANSETRON 4 MG/2 ML VIAL IVPUSH PRN (09:08)
--- NOTE | 2019-03-28 09:43 | PN ---
Progress Note, Physician - Current Medication List Current Medications: Active Medications Acetaminophen (Tylenol -) 650 mg PO Q6H PRN PRN Reason: PAIN LEVEL 5-10 Last Admin: 03/27/19 23:34 Dose: 650 mg Atorvastatin Calcium (Lipitor -) 80 mg PO HS [facility] Last Admin: 03/27/19 21:56 Dose: 80 mg Diltiazem HCl (Cardizem Cd -) 120 mg PO DAILY [facility] Last Admin: 03/27/19 09:27 Dose: 120 mg Fentanyl (Sublimaze Injection -) 50 mcg IVPUSH [id number] PRN PRN Reason: PAIN-PACU ORDER X 4 DOSES ONLY Ampicillin Sodium/Sulbactam (Sodium 3 gm/ Sodium Chloride) 100 mls @ 200 mls/ hr IVPB Q6H-IV [facility] Last Admin: 03/28/19 02:10 Dose: 200 mls/hr Sodium Chloride (Normal Saline -) 1,000 mls @ 75 mls/hr IV [facility] Last Admin: 03/27/19 22:03 Dose: 75 mls/hr Vancomycin HCl 1,500 mg/ (Dextrose) 500 mls @ 250 mls/hr IVPB Q24H [facility]; Protocol Last Admin: 03/27/19 13:13 Dose: 250 mls/hr Losartan Potassium (Cozaar -) 100 mg PO DAILY [facility] Last Admin: 03/27/19 09:27 Dose: 100 mg Metoprolol Tartrate (Lopressor -) 100 mg PO DAILY [facility] Last Admin: 03/27/19 09:27 Dose: 100 mg Ondansetron HCl (Zofran Injection) 4 mg IVPUSH Q6H PRN PRN Reason: NAUSEA AND/OR VOMITING Oxycodone HCl (Roxicodone -) 5 mg PO Q4H PRN PRN Reason: PAIN LEVEL 6-10 - Objective Vital Signs: Vital Signs Temperature 97.6 F 03/28/19 08:22 Pulse Rate 92 H 03/28/19 08:22 Respiratory Rate 18 03/28/19 08:22 Blood Pressure 160/91 03/28/19 08:22 O2 Sat by Pulse Oximetry (%) 95 03/27/19 21:00 Labs: CBC, BMP 03/28/19 07:00 03/28/19 07:00 INR, PTT INR 1.09 (0.83-1.09) 03/25/19 12:55
--- NOTE | 2019-03-28 09:50 | OP ---
Operative Note - Note: Operative Date: 03/28/19 ([facility]) Pre-Operative Diagnosis: right elbow chronic infected olecranon bursitis Operation: right olecranon bursectomy, I & D Post-Operative Diagnosis: Same as Pre-op Surgeon: Tristian Chairez [employer] Dean: Joselito Borrero Anesthesia: General, Local Specimens Removed: bursa Estimated Blood Loss (mls): 25 (tourniquet)
--- NOTE | 2019-03-28 09:53 | OP ---
Operative Note - Note: Operative Date: 03/28/19 Pre-Operative Diagnosis: chronically infected right olecranon bursa, large soft tissue mass Operation: right elbow excision large mass, excision infected olecranon bursa, excision olecranon bone/ostectomy, rotational flap skin closure Post-Operative Diagnosis: Same as Pre-op Surgeon: Tristian Chairez Statistician Mathematical: Joselito Borrero Anesthesiologist/DESTINATION COORDINATOR: Luz Morrow Anesthesia: General Specimens Removed: right elbow mass, olecranon bursa, olecranon bone, skin, 2 x culture sticks Estimated Blood Loss (mls): 25 Drains, Volume Out (mls): 0 Blood Volume Replaced (mls): 0 Fluid Volume Replaced (mls): 700 Operative Report Dictated: Yes
[2019-03-28] MEDS ORDERED: AMPICILLIN NA/SULBACTAM NA 3 GM VIAL IVPB ONE (11:00)
--- NOTE | 2019-03-28 11:47 | OP ---
DATE OF OPERATION: 03/28/2019 PREOPERATIVE DIAGNOSIS: Chronically infected right olecranon bursa and large mass. POSTOPERATIVE DIAGNOSIS: Chronically infected right olecranon bursa and large mass. PROCEDURE: Right elbow large mass excision, extensive dissection, olecranon bursectomy, rotational skin flap, and excision bone/ostectomy. SURGEON: Soha Loco MD SPINNER TENDER: RENALDO Villalta ANESTHESIOLOGIST: Luz Flores, REF-CRN DRAINS: None. COMPLICATIONS: None. SPECIMEN: Large mass and 2 culture sticks, right elbow. BLOOD LOSS: 25 mL. BLOOD GIVEN: None. FLUID REPLACEMENT: Plasma-Lyte 700 mL. This patient is a 63-year-old male with a preoperative diagnosis of chronically infected and draining mass in his right elbow. It was quite large, approximately the size of a grapefruit. It had opened. There were several open sinuses. The skin was significantly compromised, not only in the area of the draining sinuses, but the skin over the expanded olecranon bursa was dusky. We had had extensive preoperative discussions about the possible pathology including an infected olecranon bursa, some other more worrisome mass. He understood that he may have skin breakdown because of cyanosis and compromise of the vascular supply to the skin both before and after the surgery. He may need skin grafts, additional surgery. There might be skin breakdown. He understands these and other potential risks and complications which were discussed and has elected to go forward with surgery which essentially comprises of large mass excision. The patient was brought into the operating room. Peripheral IV placed and IV sedation given. He was already on Unasyn and vancomycin, and therefore, we did not give him any other perioperative antibiotics. LMA anesthesia was induced. He was placed into the supine position with a bump under his right josé-pelvis, and the right upper extremity was prepped and draped in a sterile fashion, elevated, exsanguinated with an Esmarch bandage, and a tourniquet inflated to 250 mmHg. An elliptical incision was marked out with a marking pen, with the plan to cut out the central cyanotic skin as well as the 2 largest, chronically draining sinuses. A number-15 scalpel blade was utilized to cut through the skin. Subcutaneous hemostasis was achieved with a Bovie cautery. Additional dissection done with the number-15 scalpel blade. Skin rakes were placed onto the skin for additional retraction and visualization, and I tried to leave the deep dermal adipose layer wherever possible, as well as the skin. The mass was excised essentially in 1 piece. It looked hematogenous. It looked like a chronically infected olecranon bursa that had been there for a very long time. Additional circumferential dissection was done with the number-15 scalpel blade, blunt dissection with my finger, and with the Metzenbaum scissors. We passed the mass off the field in essentially 1 piece. Two culture sticks were sent off in the area of draining pus. The area was copiously irrigated and washed out. I had mixed 50,000 units of bacitracin in 500 mL of sterile saline, used about 100 mL at this point. Next, additional excision of abnormal, chronically infected tissue was done. I took great care in the area of the ulnar nerve not to compromise the cubital tunnel. The bursa was excised. Longstanding fibrinous infected material which was orange-brownish in color was excised. Small pockets of pus were excised. A curette was used to scrape the deep dermal layer as well as the area of the olecranon. The area was copiously irrigated and washed out again with another 100 mL of saline. Next, the patient had a large, sharp bone corner at the olecranon, and so, this was excised as well, first with an osteotome and mallet and then smoothed out with a rongeur. Additional cauterization was done. I then irrigated the area out with the remaining 300 mL of saline with 50,000 units bacitracin concentration. It all looked quite good, much wheel cleaner. The only thing of concern postoperatively would be the skin and if it survives. Next, I did a careful closure, doing a rotational flap first closing with 2-0 Vicryl in the deep dermal layer and then had to mobilize some skin laterally from around the lateral epicondyle in order to close one of the gaps of a draining sinus. It did come together quite nicely, first closing the deep dermal layer with 2-0 Vicryl and then final skin reapproximation of 3 areas with a row of clifford. The arm was put through a range of motion. I do not think there was undue pressure on the repair. That being said, he would be immobilized in a splint for this reason to help the skin survive for the next 2 weeks. The area was copiously washed, dried, covered with Xeroform gauze, sterile 4-x-4 gauze, Webril, and a 5-inch Ortho-Glass posterior splint was applied, wrapped with Echo and 2 Antonino bandages. The tourniquet was taken down after total tourniquet time of about 1 hour. There were no complications during the case. The patient tolerated the procedure quite well, was brought to the regular recovery room in stable condition. SOHA LOCO M.D. [id number]
[2019-03-28] MEDS: METOPROLOL TARTRATE 50 MG TABLET (FP) PO SCH (13:34)
[2019-03-28] MEDS: LOSARTAN POTASSIUM 50 MG TABLET (FP) PO SCH (13:34)
[2019-03-28] MEDS: VANCOMYCIN HCL 1,500 MG in DEXTROSE 5%-WATER - 500 ML IVPB SCH (14:39)
[2019-03-28] MEDS ORDERED: SODIUM CHLORIDE 1,000 ML IV SCH (14:51)
--- NOTE | 2019-03-28 18:33 | PN ---
Progress Note, Physician Chief Complaint: underwent surgery Feels less pain and swelling History of Present Illness: 63 years male history of hypertension, CAD status post 2 stent, hypercholesteremia, chronic right elbow swelling/soft tissue mass as per patient in December the swelling started leaking, on March 14, 2019 evaluated ED and he was referred to wound care clinic subsequently seen by Dr. Lafleur underwent MRI on March 20 2019 that shows large effusion large suspicious mass posterior to elbow, non-calcified with cystic change in the center possibility of synovitis/subcutaneous/olecranon mass or tumor. That got infected currently following with the wound care center, recently had MRI right elbow that shows soft tissue swelling at the elbow posteriorly with central liquefaction, admitted with worsening edema and cellulitis with discharge, today underwent surgery - Current Medication List Current Medications: Active Medications Acetaminophen (Tylenol -) 650 mg PO Q6H PRN PRN Reason: PAIN LEVEL 5-10 Atorvastatin Calcium (Lipitor -) 80 mg PO HS [facility] Diltiazem HCl (Cardizem Cd -) 120 mg PO DAILY [facility] Fentanyl (Sublimaze Injection -) 50 mcg IVPUSH [id number] PRN PRN Reason: PAIN-PACU ORDER X 4 DOSES ONLY Ampicillin Sodium/Sulbactam (Sodium 3 gm/ Sodium Chloride) 100 mls @ 200 mls/ hr IVPB Q6H-IV [facility] Last Admin: 03/28/19 16:05 Dose: Not Given Sodium Chloride (Normal Saline -) 1,000 mls @ 75 mls/hr IV ASDIR [facility] Vancomycin HCl 1,500 mg/ (Dextrose) 500 mls @ 250 mls/hr IVPB Q24H [facility]; Protocol Losartan Potassium (Cozaar -) 100 mg PO DAILY [facility] Metoprolol Tartrate (Lopressor -) 100 mg PO DAILY [facility] Ondansetron HCl (Zofran Injection) 4 mg IVPUSH Q6H PRN PRN Reason: NAUSEA AND/OR VOMITING Oxycodone HCl (Roxicodone -) 5 mg PO Q4H PRN PRN Reason: PAIN LEVEL 6-10 - Objective Vital Signs: Vital Signs Temperature 97.5 F L 03/28/19 16:30 Pulse Rate 59 L 03/28/19 16:30 Respiratory Rate 20 03/28/19 16:30 Blood Pressure 130/67 03/28/19 16:30 O2 Sat by Pulse Oximetry (%) 96 03/28/19 12:45 General: Middle-aged, comfortable, not in distress HEENT; mucous membranes moist, no anemia, no jaundice, PERRLA, no nystagmus Neck: No JVD, supple, no bruit, thyroid palpably normal, normal carotid pulsations. Chest: Nontender, clear to auscultation bilaterally/bilateral wheezing/ bilateral basal rales. CVS: S1-S2 regular/irregular no murmur/gallop/rub Abdomen: Nondistended, soft, bowel sounds present. 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 , no gross motor sensory deficit Labs: CBC, BMP 03/28/19 07:00 03/28/19 07:00 INR, PTT INR 1.09 (0.83-1.09) 03/25/19 12:55 Problem List - Problems (1) Cellulitis Assessment/Plan: Continue IV Unasyn, vancomycin, wound care consult, ID consult, elevation of pain, pain control Code(s): L03.90 - CELLULITIS, UNSPECIFIED (2) Coronary artery disease Assessment/Plan: Cont home meds resume Plaviox in am Code(s): I25.10 - ATHSCL HEART DISEASE OF [place] CORONARY ARTERY W/O ANG PCTRS (3) Hypertension Assessment/Plan: Controlled continue home medication Code(s): I10 - ESSENTIAL (PRIMARY) HYPERTENSION (4) Hypercholesterolemia Assessment/Plan: Continues to Code(s): E78.00 - PURE HYPERCHOLESTEROLEMIA, UNSPECIFIED (5) Atrial fibrillation with RVR Assessment/Plan: Not on anticoagulation rate controlled continue diltiazem and metoprolol Problems reviewed: Yes Code(s): I48.91 - UNSPECIFIED ATRIAL FIBRILLATION (6) Soft tissue mass Assessment/Plan: Right elbow soft tissue mass s/p excision and olecranon bursa excision, osteotomy. F/U ortho recommendation.. Code(s): M79.89 - OTHER SPECIFIED SOFT TISSUE DISORDERS
[2019-03-28] MEDS: ATORVASTATIN CA 80 MG TABLET (FP) PO SCH (21:33)
[2019-03-29] MEDS ORDERED: PT OWN MED DRAWER 7, Y5N ONE ×6 (01:34→20:21)
[2019-03-29] MEDS: AMPICILLIN NA/SULBACTAM NA 3 GM in SODIUM CHLORIDE 100 ML IVPB SCH ×4 (02:35→20:26)
[2019-03-29 08:48] LABS: BASO % 0.4 % (0-2.0); EOS % 0.3 % (0-4.5); HEMATOCRIT 26.8 % (35.4-49); HEMOGLOBIN 9.4 GM/dL (11.7-16.9); LYMPH % 12.1 % (8-40); MCH 34.6 pg (25.7-33.7); MCHC 35.1 g/dl (32.0-35.9); MEAN CELL VOLUME 98.5 fl (80-96); MONO % 8.6 % (3.8-10.2); NEUT % 78.6 % (42.8-82.8); PLATELET COUNT 153 K/MM3 (134-434); RBC 2.72 M/mm3 (4.00-5.60); RDW 12.3 % (11.9-15.9); WHITE BLOOD COUNT 7.3 K/mm3 (4.0-10.0)
[2019-03-29] MEDS: METOPROLOL TARTRATE 50 MG TABLET (FP) PO SCH (09:09)
[2019-03-29] MEDS: LOSARTAN POTASSIUM 50 MG TABLET (FP) PO SCH (09:09)
[2019-03-29] MEDS: CLOPIDOGREL BISULFATE 75 MG TABLET (FP) PO SCH (09:10)
[2019-03-29] MEDS: ENOXAPARIN NA (PORCINE) 40 MG/0.4 ML DISP.SYRIN SQ SCH (09:11)
[2019-03-29 09:14] LABS: BLOOD UREA NITROGEN 19.5 mg/dL (7-18); CALCIUM 8.9 mg/dL (8.5-10.1); CREATININE 1.1 mg/dL (0.55-1.3); POTASSIUM 4.2 mmol/L (3.5-5.1)
--- NOTE | 2019-03-29 09:21 | PN ---
Progress Note, Physician Chief Complaint: underwent surgery Feels less pain and swelling POD1 History of Present Illness: 63 years male history of hypertension, CAD status post 2 stent, hypercholesteremia, chronic right elbow swelling/soft tissue mass as per patient in December the swelling started leaking, on March 14, 2019 evaluated ED and he was referred to wound care clinic subsequently seen by Dr. Lafleur underwent MRI on March 20 2019 that shows large effusion large suspicious mass posterior to elbow, non-calcified with cystic change in the center possibility of synovitis/subcutaneous/olecranon mass or tumor. That got infected currently following with the wound care center, recently had MRI right elbow that shows soft tissue swelling at the elbow posteriorly with central liquefaction, admitted with worsening edema and cellulitis with discharg, POD 1 - Current Medication List Current Medications: Active Medications Acetaminophen (Tylenol -) 650 mg PO Q6H PRN PRN Reason: PAIN LEVEL 5-10 Atorvastatin Calcium (Lipitor -) 80 mg PO HS [facility] Last Admin: 03/28/19 21:33 Dose: 80 mg Clopidogrel Bisulfate (Plavix -) 75 mg PO DAILY [facility] Last Admin: 03/29/19 09:10 Dose: 75 mg Diltiazem HCl (Cardizem Cd -) 120 mg PO DAILY [facility] Last Admin: 03/29/19 09:09 Dose: 120 mg Enoxaparin Sodium (Lovenox -) 40 mg SQ DAILY [facility] Last Admin: 03/29/19 09:11 Dose: 40 mg Fentanyl (Sublimaze Injection -) 50 mcg IVPUSH [id number] PRN PRN Reason: PAIN-PACU ORDER X 4 DOSES ONLY Ampicillin Sodium/Sulbactam (Sodium 3 gm/ Sodium Chloride) 100 mls @ 200 mls/ hr IVPB Q6H-IV [facility] Last Admin: 03/29/19 09:10 Dose: 200 mls/hr Vancomycin HCl 1,500 mg/ (Dextrose) 500 mls @ 250 mls/hr IVPB Q24H [facility]; Protocol Losartan Potassium (Cozaar -) 100 mg PO DAILY [facility] Last Admin: 03/29/19 09:09 Dose: 100 mg Metoprolol Tartrate (Lopressor -) 100 mg PO DAILY [facility] Last Admin: 03/29/19 09:09 Dose: 100 mg Ondansetron HCl (Zofran Injection) 4 mg IVPUSH Q6H PRN PRN Reason: NAUSEA AND/OR VOMITING Oxycodone HCl (Roxicodone -) 5 mg PO Q4H PRN PRN Reason: PAIN LEVEL 6-10 - Objective Vital Signs: Vital Signs Temperature 97.9 F 03/29/19 06:20 Pulse Rate 54 L 03/29/19 06:20 Respiratory Rate 18 03/29/19 06:20 Blood Pressure 133/72 03/29/19 06:20 O2 Sat by Pulse Oximetry (%) 96 03/28/19 21:00 General: Middle-aged, comfortable, not in distress HEENT; mucous membranes moist, no anemia, no jaundice, PERRLA, no nystagmus Neck: No JVD, supple, no bruit, thyroid palpably normal, normal carotid pulsations. Chest: Nontender, clear to auscultation bilaterally/bilateral wheezing/ bilateral basal rales. CVS: S1-S2 regular/irregular no murmur/gallop/rub Abdomen: Nondistended, soft, bowel sounds present. 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: AO X3 , no gross motor sensory deficit Labs: CBC, BMP 03/29/19 07:25 03/29/19 07:25 INR, PTT INR 1.09 (0.83-1.09) 03/25/19 12:55 Problem List - Problems (1) Cellulitis Assessment/Plan: Continue IV Unasyn, vancomycin, wound care consult, ID consult, elevation of pain, pain control, underwent surgery POD1 Code(s): L03.90 - CELLULITIS, UNSPECIFIED (2) Coronary artery disease Assessment/Plan: Cont home meds resume Plaviox in am Code(s): I25.10 - ATHSCL HEART DISEASE OF [place] CORONARY ARTERY W/O ANG PCTRS (3) Hypertension Assessment/Plan: Controlled continue home medication Code(s): I10 - ESSENTIAL (PRIMARY) HYPERTENSION (4) Hypercholesterolemia Assessment/Plan: Continues to Code(s): E78.00 - PURE HYPERCHOLESTEROLEMIA, UNSPECIFIED (5) Atrial fibrillation with RVR Assessment/Plan: Not on anticoagulation rate controlled continue diltiazem and metoprolol Code(s): I48.91 - UNSPECIFIED ATRIAL FIBRILLATION (6) Soft tissue mass Assessment/Plan: Right elbow soft tissue mass s/p excision and olecranon bursa excision, osteotomy. POD1 F/U ortho recommendation.. Code(s): M79.89 - OTHER SPECIFIED SOFT TISSUE DISORDERS (7) Anemia Assessment/Plan: Post operative F/U H/H add iron and B complex. Code(s): D64.9 - ANEMIA, UNSPECIFIED
[2019-03-29] MEDS: VANCOMYCIN HCL 1,500 MG in DEXTROSE 5%-WATER - 500 ML IVPB SCH (14:30)
[2019-03-29] MEDS: ACETAMINOPHEN 325 MG TABLET (FP) PO PRN (18:19)
--- NOTE | 2019-03-29 20:14 | PN ---
Progress Note, Physician History of Present Illness: Pt is alert, afebrile. States he has minimal pain in Rt arm. Has no specific complaints. - Current Medication List Current Medications: Active Medications Acetaminophen (Tylenol -) 650 mg PO Q6H PRN PRN Reason: PAIN LEVEL 5-10 Last Admin: 03/29/19 18:19 Dose: 650 mg Atorvastatin Calcium (Lipitor -) 80 mg PO HS [facility] Last Admin: 03/28/19 21:33 Dose: 80 mg Clopidogrel Bisulfate (Plavix -) 75 mg PO DAILY [facility] Last Admin: 03/29/19 09:10 Dose: 75 mg Diltiazem HCl (Cardizem Cd -) 120 mg PO DAILY [facility] Last Admin: 03/29/19 09:09 Dose: 120 mg Enoxaparin Sodium (Lovenox -) 40 mg SQ DAILY [facility] Last Admin: 03/29/19 09:11 Dose: 40 mg Fentanyl (Sublimaze Injection -) 50 mcg IVPUSH [id number] PRN PRN Reason: PAIN-PACU ORDER X 4 DOSES ONLY Ampicillin Sodium/Sulbactam (Sodium 3 gm/ Sodium Chloride) 100 mls @ 200 mls/ hr IVPB Q6H-IV [facility] Last Admin: 03/29/19 17:35 Dose: 200 mls/hr Vancomycin HCl 1,500 mg/ (Dextrose) 500 mls @ 250 mls/hr IVPB Q24H [facility]; Protocol Last Admin: 03/29/19 14:30 Dose: 250 mls/hr Losartan Potassium (Cozaar -) 100 mg PO DAILY [facility] Last Admin: 03/29/19 09:09 Dose: 100 mg Metoprolol Tartrate (Lopressor -) 100 mg PO DAILY [facility] Last Admin: 03/29/19 09:09 Dose: 100 mg Ondansetron HCl (Zofran Injection) 4 mg IVPUSH Q6H PRN PRN Reason: NAUSEA AND/OR VOMITING Oxycodone HCl (Roxicodone -) 5 mg PO Q4H PRN PRN Reason: PAIN LEVEL 6-10 - Objective Vital Signs: Vital Signs Temperature 98.0 F 03/29/19 19:53 Pulse Rate 66 03/29/19 19:53 Respiratory Rate 20 03/29/19 19:53 Blood Pressure 117/61 03/29/19 19:53 O2 Sat by Pulse Oximetry (%) 96 03/28/19 21:00 Constitutional: Yes: No Distress, Calm Cardiovascular: Yes: Regular Rate and Rhythm Respiratory: Yes: Regular Gastrointestinal: Yes: Normal Bowel Sounds, Soft Genitourinary: Yes: WNL Integumentary: Yes: WNL Wound/Incision: Yes: Other (Rt arm dressing intact/ in sling. Minimal pain.) Neurological: Yes: Alert, Oriented Labs: CBC, BMP 03/29/19 07:25 03/29/19 07:25 INR, PTT INR 1.09 (0.83-1.09) 03/25/19 12:55 Microbiology 03/28/19 09:00 Elbow - Right Gram Stain - Final 03/28/19 09:00 Elbow - Right Wound Culture - Preliminary Strep Agalactiae Group B Alpha Hemolytic Streptococcus 03/28/19 09:00 Elbow - Right Gram Stain - Final 03/28/19 09:00 Elbow - Right Wound Culture - Preliminary Strep Agalactiae Group B Alpha Hemolytic Streptococcus 03/25/19 12:55 Blood - Peripheral Venous Blood Culture - Preliminary NO GROWTH OBTAINED AFTER 96 HOURS, INCUBATION TO CONTINUE FOR 1 DAYS. 03/25/19 12:55 Blood - Peripheral Venous Blood Culture - Preliminary NO GROWTH OBTAINED AFTER 96 HOURS, INCUBATION TO CONTINUE FOR 1 DAYS. 03/25/19 12:35 Arm - Right Elbow Gram Stain - Final 03/25/19 12:35 Arm - Right Elbow Wound Culture - Final Strep Agalactiae Group B Staphylococcus Aureus Alpha Hemolytic Streptococcus - ....Imaging X-ray: Report Reviewed Problem List - Problems (1) Anemia Code(s): D64.9 - ANEMIA, UNSPECIFIED (2) Coronary artery disease Code(s): I25.10 - ATHSCL HEART DISEASE OF [place] CORONARY ARTERY W/O ANG PCTRS (3) Hypercholesterolemia Code(s): E78.00 - PURE HYPERCHOLESTEROLEMIA, UNSPECIFIED (4) Hypertension Code(s): I10 - ESSENTIAL (PRIMARY) HYPERTENSION (5) Atrial fibrillation with RVR Code(s): I48.91 - UNSPECIFIED ATRIAL FIBRILLATION (6) Soft tissue mass Code(s): M79.89 - OTHER SPECIFIED SOFT TISSUE DISORDERS Assessment/Plan 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
[2019-03-29] MEDS: ATORVASTATIN CA 80 MG TABLET (FP) PO SCH (21:11)
[2019-03-30] MEDS: AMPICILLIN NA/SULBACTAM NA 3 GM in SODIUM CHLORIDE 100 ML IVPB SCH ×4 (02:17→21:58)
[2019-03-30 08:24] LABS: BASO % 0.6 % (0-2.0); EOS % 2.6 % (0-4.5); HEMATOCRIT 27.2 % (35.4-49); HEMOGLOBIN 9.4 GM/dL (11.7-16.9); LYMPH % 25.1 % (8-40); MCH 34.3 pg (25.7-33.7); MCHC 34.6 g/dl (32.0-35.9); MEAN PLT VOLUME 7.8 fl (7.5-11.1); MONO % 10.5 % (3.8-10.2); NEUT % 61.2 % (42.8-82.8); PLATELET COUNT 161 K/MM3 (134-434); RBC 2.75 M/mm3 (4.00-5.60); RDW 12.6 % (11.9-15.9); WHITE BLOOD COUNT 5.8 K/mm3 (4.0-10.0)
[2019-03-30 09:00] LABS: BLOOD UREA NITROGEN 22.4 mg/dL (7-18); CALCIUM 8.6 mg/dL (8.5-10.1); CREATININE 1.2 mg/dL (0.55-1.3); POTASSIUM 3.8 mmol/L (3.5-5.1)
[2019-03-30] MEDS ORDERED: PT OWN MED DRAWER 7, Y5N ONE ×3 (09:04→21:18)
[2019-03-30] MEDS: METOPROLOL TARTRATE 50 MG TABLET (FP) PO SCH (09:07)
[2019-03-30] MEDS: LOSARTAN POTASSIUM 50 MG TABLET (FP) PO SCH (09:07)
[2019-03-30] MEDS: ENOXAPARIN NA (PORCINE) 40 MG/0.4 ML DISP.SYRIN SQ SCH (09:08)
[2019-03-30] MEDS: CLOPIDOGREL BISULFATE 75 MG TABLET (FP) PO SCH (09:08)
--- NOTE | 2019-03-30 10:05 | PN ---
Progress Note, Physician Chief Complaint: Feels less pain and swelling POD2 History of Present Illness: 63 years male history of hypertension, CAD status post 2 stent, hypercholesteremia, chronic right elbow swelling/soft tissue mass as per patient in December the swelling started leaking, on March 14, 2019 evaluated ED and he was referred to wound care clinic subsequently seen by Dr. Lafleur underwent MRI on March 20 2019 that shows large effusion large suspicious mass posterior to elbow, non-calcified with cystic change in the center possibility of synovitis/subcutaneous/olecranon mass or tumor. That got infected currently following with the wound care center, recently had MRI right elbow that shows soft tissue swelling at the elbow posteriorly with central liquefaction, admitted with worsening edema and cellulitis with discharg, POD 2 - Current Medication List Current Medications: Active Medications Acetaminophen (Tylenol -) 650 mg PO Q6H PRN PRN Reason: PAIN LEVEL 5-10 Last Admin: 03/29/19 18:19 Dose: 650 mg Atorvastatin Calcium (Lipitor -) 80 mg PO HS [facility] Last Admin: 03/29/19 21:11 Dose: 80 mg Clopidogrel Bisulfate (Plavix -) 75 mg PO DAILY [facility] Last Admin: 03/30/19 09:08 Dose: 75 mg Diltiazem HCl (Cardizem Cd -) 120 mg PO DAILY [facility] Last Admin: 03/30/19 09:07 Dose: 120 mg Enoxaparin Sodium (Lovenox -) 40 mg SQ DAILY [facility] Last Admin: 03/30/19 09:08 Dose: 40 mg Fentanyl (Sublimaze Injection -) 50 mcg IVPUSH [id number] PRN PRN Reason: PAIN-PACU ORDER X 4 DOSES ONLY Ampicillin Sodium/Sulbactam (Sodium 3 gm/ Sodium Chloride) 100 mls @ 200 mls/ hr IVPB Q6H-IV [facility] Last Admin: 03/30/19 09:06 Dose: 200 mls/hr Vancomycin HCl 1,500 mg/ (Dextrose) 500 mls @ 250 mls/hr IVPB Q24H [facility]; Protocol Last Admin: 03/29/19 14:30 Dose: 250 mls/hr Losartan Potassium (Cozaar -) 100 mg PO DAILY [facility] Last Admin: 03/30/19 09:07 Dose: 100 mg Metoprolol Tartrate (Lopressor -) 100 mg PO DAILY [facility] Last Admin: 03/30/19 09:07 Dose: 100 mg Ondansetron HCl (Zofran Injection) 4 mg IVPUSH Q6H PRN PRN Reason: NAUSEA AND/OR VOMITING Oxycodone HCl (Roxicodone -) 5 mg PO Q4H PRN PRN Reason: PAIN LEVEL 6-10 - Objective Vital Signs: Vital Signs Temperature 97.8 F 03/30/19 06:00 Pulse Rate 53 L 03/30/19 06:00 Respiratory Rate 20 03/30/19 06:00 Blood Pressure 120/65 03/30/19 06:00 O2 Sat by Pulse Oximetry (%) 96 03/29/19 22:39 General: Middle-aged, comfortable, not in distress HEENT; mucous membranes moist, no anemia, no jaundice, PERRLA, no nystagmus Neck: No JVD, supple, no bruit, thyroid palpably normal, normal carotid pulsations. Chest: Nontender, clear to auscultation bilaterally/bilateral wheezing/ bilateral basal rales. CVS: S1-S2 regular/irregular no murmur/gallop/rub Abdomen: Nondistended, soft, bowel sounds present. 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 , no gross motor sensory deficit Labs: CBC, BMP 03/30/19 06:35 03/30/19 06:35 INR, PTT INR 1.09 (0.83-1.09) 03/25/19 12:55 Problem List - Problems (1) Cellulitis Assessment/Plan: Continue IV Unasyn, vancomycin day 6th , intial culture Grew Staph Aureus and Strpt,no OM on MRI 03/20/2019 , wound care consult, ID consult, elevation of pain, pain control, underwent surgery POD2 Code(s): L03.90 - CELLULITIS, UNSPECIFIED (2) Coronary artery disease Assessment/Plan: Cont home meds resume Plaviox in am Code(s): I25.10 - ATHSCL HEART DISEASE OF [place] CORONARY ARTERY W/O ANG PCTRS (3) Hypertension Assessment/Plan: Controlled continue home medication Code(s): I10 - ESSENTIAL (PRIMARY) HYPERTENSION (4) Hypercholesterolemia Assessment/Plan: Continues to Code(s): E78.00 - PURE HYPERCHOLESTEROLEMIA, UNSPECIFIED (5) Atrial fibrillation with RVR Assessment/Plan: Not on anticoagulation rate controlled continue diltiazem and metoprolol Code(s): I48.91 - UNSPECIFIED ATRIAL FIBRILLATION (6) Soft tissue mass Assessment/Plan: Right elbow soft tissue mass s/p excision and olecranon bursa excision, osteotomy. POD1 F/U ortho recommendation.. Code(s): M79.89 - OTHER SPECIFIED SOFT TISSUE DISORDERS (7) Anemia Assessment/Plan: Post operative F/U H/H add iron and B complex. Code(s): D64.9 - ANEMIA, UNSPECIFIED
--- NOTE | 2019-03-30 10:15 | PN ---
Progress Note (short form) - Note Progress Note: STABLE IN BANDAGES AND NVI IMP DOING WELL PLAN: CONTINUE WOUND CARE , DC PLANNING
[2019-03-30] MEDS: VANCOMYCIN HCL 1,500 MG in DEXTROSE 5%-WATER - 500 ML IVPB SCH (14:06)
[2019-03-30] MEDS: ACETAMINOPHEN 325 MG TABLET (FP) PO PRN ×2 (14:16→21:58)
--- NOTE | 2019-03-30 19:44 | PN ---
Progress Note, Physician History of Present Illness: Pt afebrile, without distress. Has occasional stabbing pain in Rt elbow, controlled with Tylenol. No other complaints. - Current Medication List Current Medications: Active Medications Acetaminophen (Tylenol -) 650 mg PO Q6H PRN PRN Reason: PAIN LEVEL 5-10 Last Admin: 03/30/19 14:16 Dose: 650 mg Atorvastatin Calcium (Lipitor -) 80 mg PO HS [facility] Last Admin: 03/29/19 21:11 Dose: 80 mg Clopidogrel Bisulfate (Plavix -) 75 mg PO DAILY [facility] Last Admin: 03/30/19 09:08 Dose: 75 mg Diltiazem HCl (Cardizem Cd -) 120 mg PO DAILY [facility] Last Admin: 03/30/19 09:07 Dose: 120 mg Enoxaparin Sodium (Lovenox -) 40 mg SQ DAILY [facility] Last Admin: 03/30/19 09:08 Dose: 40 mg Fentanyl (Sublimaze Injection -) 50 mcg IVPUSH [id number] PRN PRN Reason: PAIN-PACU ORDER X 4 DOSES ONLY Ampicillin Sodium/Sulbactam (Sodium 3 gm/ Sodium Chloride) 100 mls @ 200 mls/ hr IVPB Q6H-IV [facility] Last Admin: 03/30/19 16:42 Dose: 200 mls/hr Vancomycin HCl 1,500 mg/ (Dextrose) 500 mls @ 250 mls/hr IVPB Q24H [facility]; Protocol Last Admin: 03/30/19 14:06 Dose: 250 mls/hr Losartan Potassium (Cozaar -) 100 mg PO DAILY [facility] Last Admin: 03/30/19 09:07 Dose: 100 mg Metoprolol Tartrate (Lopressor -) 100 mg PO DAILY [facility] Last Admin: 03/30/19 09:07 Dose: 100 mg Ondansetron HCl (Zofran Injection) 4 mg IVPUSH Q6H PRN PRN Reason: NAUSEA AND/OR VOMITING Oxycodone HCl (Roxicodone -) 5 mg PO Q4H PRN PRN Reason: PAIN LEVEL 6-10 - Objective Vital Signs: Vital Signs Temperature 98.2 F 03/30/19 17:13 Pulse Rate 56 L 03/30/19 17:13 Respiratory Rate 18 03/30/19 17:13 Blood Pressure 101/59 L 03/30/19 17:13 O2 Sat by Pulse Oximetry (%) 96 03/29/19 22:39 Constitutional: Yes: No Distress, Calm Cardiovascular: Yes: Regular Rate and Rhythm Respiratory: Yes: Regular Gastrointestinal: Yes: Normal Bowel Sounds, Soft Genitourinary: Yes: WNL Wound/Incision: Yes: Other (RUE dressing/sling , able to move fingers) Neurological: Yes: Alert, Oriented Labs: CBC, BMP 03/30/19 06:35 03/30/19 06:35 INR, PTT INR 1.09 (0.83-1.09) 03/25/19 12:55 Microbiology 03/25/19 12:55 Blood - Peripheral Venous Blood Culture - Final NO GROWTH AFTER 5 DAYS INCUBATION 03/25/19 12:55 Blood - Peripheral Venous Blood Culture - Final NO GROWTH AFTER 5 DAYS INCUBATION 03/28/19 09:00 Elbow - Right Gram Stain - Final 03/28/19 09:00 Elbow - Right Wound Culture - Final Strep Agalactiae Group B Alpha Hemolytic Streptococcus 03/28/19 09:00 Elbow - Right Gram Stain - Final 03/28/19 09:00 Elbow - Right Wound Culture - Final Strep Agalactiae Group B Alpha Hemolytic Streptococcus 03/25/19 12:35 Arm - Right Elbow Gram Stain - Final 03/25/19 12:35 Arm - Right Elbow Wound Culture - Final Strep Agalactiae Group B Staphylococcus Aureus Alpha Hemolytic Streptococcus Problem List - Problems (1) Anemia Code(s): D64.9 - ANEMIA, UNSPECIFIED (2) Coronary artery disease Code(s): I25.10 - ATHSCL HEART DISEASE OF [place] CORONARY ARTERY W/O ANG PCTRS (3) Hypercholesterolemia Code(s): E78.00 - PURE HYPERCHOLESTEROLEMIA, UNSPECIFIED (4) Hypertension Code(s): I10 - ESSENTIAL (PRIMARY) HYPERTENSION (5) Atrial fibrillation with RVR Code(s): I48.91 - UNSPECIFIED ATRIAL FIBRILLATION (6) Soft tissue mass Code(s): M79.89 - OTHER SPECIFIED SOFT TISSUE DISORDERS Assessment/Plan 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
[2019-03-30] MEDS: ATORVASTATIN CA 80 MG TABLET (FP) PO SCH (21:58)
[2019-03-31] MEDS: AMPICILLIN NA/SULBACTAM NA 3 GM in SODIUM CHLORIDE 100 ML IVPB SCH ×2 (02:22→10:12)
--- NOTE | 2019-03-31 06:40 | DS ---
Physical Examination Vital Signs: Vital Signs Temperature 98.2 F 04/01/19 06:58 Pulse Rate 68 04/01/19 06:58 Respiratory Rate 20 04/01/19 06:58 Blood Pressure 136/76 04/01/19 06:58 O2 Sat by Pulse Oximetry (%) 96 03/31/19 21:00 General: Middle-aged, comfortable, not in distress HEENT; mucous membranes moist, no anemia, no jaundice, PERRLA, no nystagmus Neck: No JVD, supple, no bruit, thyroid palpably normal, normal carotid pulsations. Chest: Nontender, clear to auscultation bilaterally/bilateral wheezing/ bilateral basal rales. CVS: S1-S2 regular/irregular no murmur/gallop/rub Abdomen: Nondistended, soft, bowel sounds present. 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 , no gross motor sensory deficit Labs: CBC, BMP 04/01/19 06:35 04/01/19 06:35 Microbiology 03/25/19 12:55 Blood - Peripheral Venous Blood Culture - Final NO GROWTH AFTER 5 DAYS INCUBATION 03/25/19 12:55 Blood - Peripheral Venous Blood Culture - Final NO GROWTH AFTER 5 DAYS INCUBATION 03/28/19 09:00 Elbow - Right Gram Stain - Final 03/28/19 09:00 Elbow - Right Wound Culture - Final Strep Agalactiae Group B Alpha Hemolytic Streptococcus 03/28/19 09:00 Elbow - Right Gram Stain - Final 03/28/19 09:00 Elbow - Right Wound Culture - Final Strep Agalactiae Group B Alpha Hemolytic Streptococcus Discharge Summary Problems reviewed: Yes Reason For Visit: CELLULITIS, SOFT TISSUE MASS Current Active Problems Infected Olecranon Bursa with abscess formation. Cellulitis (Acute) Coronary artery disease (Acute) Hypercholesterolemia (Acute) Hypertension (Acute) Anemia; Procedures: Principal: I and D excisicion of olecronon bursa and osteomy Hospital Course: 63 years male history of hypertension, CAD status post 2 stent, hypercholesteremia, chronic right elbow swelling/soft tissue mass as per patient in December the swelling started leaking, on March 14, 2019 evaluated ED and he was referred to wound care clinic subsequently seen by Dr. Lafleur underwent MRI on March 20 2019 that shows large effusion large suspicious mass posterior to elbow, non-calcified with cystic change in the center possibility of synovitis/subcutaneous/olecranon mass or tumor. That got infected currently following with the wound care center, recently had MRI right elbow that shows soft tissue swelling at the elbow posteriorly with central liquefaction, admitted with worsening edema and cellulitis Condition: Improved - Instructions Diet, Activity, Other Instructions: Low salt low cholestrol Visit ED if numbness of hand, worsening , swelling discharge or pain Referrals: Gil Borja MD [Primary Care Provider] - 1 Month Tristian Chairez MD [Staff Physician] - 04/04/19 Disposition: HOME - Home Medications Comprehensive Discharge Medication List: Ambulatory Orders Diltiazem Cd [Cardizem Cd -] 120 mg PO DAILY #0 cap.cd.24h 04/09/14 Aspirin [Adult Aspirin Regimen] 1 tab PO DAILY 03/14/19 Atorvastatin Calcium 1 tab PO HS 03/14/19 Losartan Potassium 100 mg PO DAILY 03/14/19 Clopidogrel Bisulfate [Plavix] 75 mg PO DAILY 03/25/19 Metoprolol Tartrate [Lopressor -] 100 mg PO DAILY 03/25/19 Amoxicillin/Potassium Clav [Augmentin 875-125 Tablet] 1 each PO BID 10 Days #20 tablet MDD two 03/31/19 Prescription Drug Monitoring Program (I-STOP) results: I-STOP reviewed and no issues identified
[2019-03-31 08:53] LABS: BASO % 0.7 % (0-2.0); EOS % 3.1 % (0-4.5); HEMATOCRIT 29.3 % (35.4-49); HEMOGLOBIN 10.2 GM/dL (11.7-16.9); LYMPH % 24.5 % (8-40); MCH 34.4 pg (25.7-33.7); MCHC 34.8 g/dl (32.0-35.9); MEAN CELL VOLUME 98.9 fl (80-96); MEAN PLT VOLUME 7.7 fl (7.5-11.1); MONO % 11.4 % (3.8-10.2); NEUT % 60.3 % (42.8-82.8); PLATELET COUNT 191 K/MM3 (134-434); RBC 2.97 M/mm3 (4.00-5.60); RDW 12.7 % (11.9-15.9); WHITE BLOOD COUNT 5.8 K/mm3 (4.0-10.0)
--- NOTE | 2019-03-31 08:54 | PN ---
Progress Note, Physician Chief Complaint: minimal pain POD3 cleared by Orthopaedics to DC History of Present Illness: 63 years male history of hypertension, CAD status post 2 stent, hypercholesteremia, chronic right elbow swelling/soft tissue mass as per patient in December the swelling started leaking, on March 14, 2019 evaluated ED and he was referred to wound care clinic subsequently seen by Dr. Lafleur underwent MRI on March 20 2019 that shows large effusion large suspicious mass posterior to elbow, non-calcified with cystic change in the center possibility of synovitis/subcutaneous/olecranon mass or tumor. That got infected currently following with the wound care center, recently had MRI right elbow that shows soft tissue swelling at the elbow posteriorly with central liquefaction, admitted with worsening edema and cellulitis with discharg, POD 3 - Current Medication List Current Medications: Active Medications Acetaminophen (Tylenol -) 650 mg PO Q6H PRN PRN Reason: PAIN LEVEL 5-10 Last Admin: 03/30/19 21:58 Dose: 650 mg Atorvastatin Calcium (Lipitor -) 80 mg PO HS [facility] Last Admin: 03/30/19 21:58 Dose: 80 mg Clopidogrel Bisulfate (Plavix -) 75 mg PO DAILY [facility] Last Admin: 03/30/19 09:08 Dose: 75 mg Diltiazem HCl (Cardizem Cd -) 120 mg PO DAILY [facility] Last Admin: 03/30/19 09:07 Dose: 120 mg Enoxaparin Sodium (Lovenox -) 40 mg SQ DAILY [facility] Last Admin: 03/30/19 09:08 Dose: 40 mg Fentanyl (Sublimaze Injection -) 50 mcg IVPUSH [id number] PRN PRN Reason: PAIN-PACU ORDER X 4 DOSES ONLY Ampicillin Sodium/Sulbactam (Sodium 3 gm/ Sodium Chloride) 100 mls @ 200 mls/ hr IVPB Q6H-IV [facility] Last Admin: 03/31/19 02:22 Dose: 200 mls/hr Vancomycin HCl 1,500 mg/ (Dextrose) 500 mls @ 250 mls/hr IVPB Q24H [facility]; Protocol Last Admin: 03/30/19 14:06 Dose: 250 mls/hr Losartan Potassium (Cozaar -) 100 mg PO DAILY [facility] Last Admin: 03/30/19 09:07 Dose: 100 mg Metoprolol Tartrate (Lopressor -) 100 mg PO DAILY [facility] Last Admin: 03/30/19 09:07 Dose: 100 mg Ondansetron HCl (Zofran Injection) 4 mg IVPUSH Q6H PRN PRN Reason: NAUSEA AND/OR VOMITING Oxycodone HCl (Roxicodone -) 5 mg PO Q4H PRN PRN Reason: PAIN LEVEL 6-10 - Objective Vital Signs: Vital Signs Temperature 98 F 03/31/19 04:00 Pulse Rate 54 L 03/31/19 04:00 Respiratory Rate 20 03/31/19 04:00 Blood Pressure 132/65 03/31/19 04:00 O2 Sat by Pulse Oximetry (%) 96 03/30/19 21:00 General: Middle-aged, comfortable, not in distress HEENT; mucous membranes moist, no anemia, no jaundice, PERRLA, no nystagmus Neck: No JVD, supple, no bruit, thyroid palpably normal, normal carotid pulsations. Chest: Nontender, clear to auscultation bilaterally/bilateral wheezing/ bilateral basal rales. CVS: S1-S2 regular/irregular no murmur/gallop/rub Abdomen: Nondistended, soft, bowel sounds present. 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 , no gross motor sensory deficit Labs: INR, PTT INR 1.09 (0.83-1.09) 03/25/19 12:55 Problem List - Problems (1) Cellulitis Assessment/Plan: Continue IV Unasyn, vancomycin day 6th , intial culture Grew Staph Aureus and Strpt,no OM on MRI 03/20/2019 , wound care consult, ID consult, elevation of pain, pain control, underwent surgery POD3 claered by ortho to Dc home will F/U ID Code(s): L03.90 - CELLULITIS, UNSPECIFIED (2) Coronary artery disease Assessment/Plan: Cont home meds resume Plaviox in am Code(s): I25.10 - ATHSCL HEART DISEASE OF [place] CORONARY ARTERY W/O ANG PCTRS (3) Hypertension Assessment/Plan: Controlled continue home medication Code(s): I10 - ESSENTIAL (PRIMARY) HYPERTENSION (4) Hypercholesterolemia Assessment/Plan: Continues to Code(s): E78.00 - PURE HYPERCHOLESTEROLEMIA, UNSPECIFIED (5) Soft tissue mass Assessment/Plan: Right elbow soft tissue mass s/p excision and olecranon bursa excision, osteototomy, ortho cleared to DC home.. Code(s): M79.89 - OTHER SPECIFIED SOFT TISSUE DISORDERS (6) Anemia Assessment/Plan: Post operative F/U H/H add iron and B complex. Code(s): D64.9 - ANEMIA, UNSPECIFIED
--- NOTE | 2019-03-31 09:15 | PN ---
Progress Note (short form) - Note Progress Note: Ortho Pt seen and examined- s/p right elbow bursectomy and I & D pod #3 Selected Entries 03/31/19 04:00 Temperature 98 F Pulse Rate 54 L Respiratory 20 Rate Blood Pressure 132/65 Laboratory Tests 03/31/19 07:37 WBC 5.8 Hgb 10.2 L Hct 29.3 L Plt Count 191 splint intact, nvi a/p maintain splint Abx as per ID ok to d/c from ortho pov f/u in the office either Sunday/sunday
--- NOTE | 2019-03-31 09:16 | PN ---
Progress Note (short form) - Note Progress Note: Patient undergoing iv antibiotic therapy, no cheat pain or discomfort, no SOBB. Known case of CAD, s/p PCIDEs, HTN. dyslipidemia. Active Medications Acetaminophen (Tylenol -) 650 mg PO Q6H PRN PRN Reason: PAIN LEVEL 5-10 Last Admin: 03/31/19 21:34 Dose: 650 mg Atorvastatin Calcium (Lipitor -) 80 mg PO HS [facility] Last Admin: 03/31/19 21:31 Dose: 80 mg Clopidogrel Bisulfate (Plavix -) 75 mg PO DAILY [facility] Last Admin: 04/01/19 09:30 Dose: 75 mg Diltiazem HCl (Cardizem Cd -) 120 mg PO DAILY [facility] Last Admin: 04/01/19 09:31 Dose: 120 mg Enoxaparin Sodium (Lovenox -) 40 mg SQ DAILY [facility] Last Admin: 04/01/19 09:31 Dose: 40 mg Fentanyl (Sublimaze Injection -) 50 mcg IVPUSH [id number] PRN PRN Reason: PAIN-PACU ORDER X 4 DOSES ONLY Vancomycin HCl 1,500 mg/ (Dextrose) 500 mls @ 250 mls/hr IVPB Q24H [facility]; Protocol Last Admin: 03/31/19 13:59 Dose: 250 mls/hr Losartan Potassium (Cozaar -) 100 mg PO DAILY [facility] Last Admin: 04/01/19 09:31 Dose: 100 mg Metoprolol Tartrate (Lopressor -) 100 mg PO DAILY [facility] Last Admin: 04/01/19 09:31 Dose: 100 mg Ondansetron HCl (Zofran Injection) 4 mg IVPUSH Q6H PRN PRN Reason: NAUSEA AND/OR VOMITING Oxycodone HCl (Roxicodone -) 5 mg PO Q4H PRN PRN Reason: PAIN LEVEL 6-10 O: Vital signs: BP: 112/60mmHg. Pulse: 68/min. Temp:98degrees. NECK; supple, no JVD, carotids 2+. HEART: S1 ansS2 normal, no murmur or gallops. LUNGS: Clear. ABDOMEN: Soft, nontender, no organomegaly. EXTREMITIES: No calf tenderness or dependent edema.LUE bandaged. IMPRESSION 1. CADs/p PCI/NHUNG, stable angina. 2. HTN. 3. Dyslipidemia. RECOMMENDATIONS: 1. Continue current meds. 2. Risk modifications. 3. Discharge when stable.
--- NOTE | 2019-03-31 09:37 | CONS ---
CARDIOLOGY CONSULTATION DATE OF CONSULTATION: DATE OF DICTATION: 03/28/2019 REQUESTING PHYSICIAN: Gil Borja MD CHIEF COMPLAINT: History of infected right olecranon bursa/mass. HISTORY: Patient is a 63-year-old gentleman who has had a chronic right elbow mass and recently developed further swelling, erythema, and was found to be infected and underwent an excision and olecranon bursectomy. Patient has longstanding history of hypertension, hypertensive cardiovascular disease, coronary artery disease, status post PCI/NHUNG on July 04, 2017, for a subtotal, proximal LAD stenosis. Patient also has history of dyslipidemia type IIb, paroxysmal atrial fibrillation dating back to 2014. No history of chest pain or discomfort either at rest or with exertion. No history of exertional dyspnea, paroxysmal or nocturnal dyspnea, or orthopnea. No history of palpitations, lightheadedness, dizziness, presyncope, or syncope reported. PAST HISTORY: As mentioned in the history of present illness. 1. ? History of osteomyelitis involving the lumbosacral spine. 2. History of osteoarthritis of the right hip. SURGICAL HISTORY: 1. Status post resurfacing of the right hip. 2. History of biopsy apparently of lumbosacral vertebra. SOCIAL HISTORY: . 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 Has a son and a daughter who are healthy. Nonsmoker. No history of drug use. Drinks excessively, at least 6 beers daily and 6-12 beers over the weekend. FAMILY HISTORY: Father in his late 70s. Apparently had heart disease, parkinsonism, and dementia. Mother in her 80s. She had arthritis and apparently a carcinoma of the back. Has 3 brothers and 1 sister. One brother at age 37 of unknown cause, possibly carcinoma. A sister is undergoing chemotherapy for carcinoma site uncertain. ALLERGIES: None reported. MEDICATIONS: Prior to admission, patient was on the following medications: Cartia XT 120 mg p.o. daily, metoprolol tartrate 100 mg p.o. daily, atorvastatin 80 mg p.o. daily, losartan 100 mg p.o. daily, clopidogrel 75 mg p.o. daily, aspirin 81 mg p.o. daily, Nitrostat 0.4 mg sublingual p.r.n. chest discomfort. Had been on pantoprazole, which has been discontinued. REVIEW OF SYSTEMS: Constitutional: ? History of chills. No history of fever or night sweats. No history of unintentional weight loss. HEENT: No history of headaches, diplopia, blurred vision. No history of epistaxis, hoarseness, tinnitus, or deafness. Cardiovascular: See history of present illness. No history of recent chest pain or discomfort. Respiratory: No history of cough, expectoration, or hemoptysis. No history of tuberculosis. Gastrointestinal: No history of nausea, vomiting, melena, or hematemesis. No history of change in bowel habits. Endocrine: No history of polyuria or polydipsia. No history of intolerance to cold or warm weather. Musculoskeletal: No history of myalgias or arthralgias. See history of present illness. Genitourinary: No history of dysuria, frequency, urgency, or hematuria. Neurological: No history of seizures or syncope. No history of focal weakness. Hematological/lymphatic: No history of bleeding, ecchymosis, or anemia. No history of lymphadenopathy. PHYSICAL EXAMINATION: General: A 63-year-old obese male who is in no distress. No pallor, cyanosis, clubbing, or jaundice. Vital Signs: Blood pressure 145/73 mmHg, pulse 80 beats per minute and regular, temperature 98.2 degrees Fahrenheit, respirations 16 per minute, oxygen saturation 98% on room air. Neck: Supple. No jugular venous distention. Carotids are equal, and upstrokes are normal. No bruits are heard, and no thyromegaly is present. Heart: No heaves or thrills. S1, S2 are normal. No murmur or gallops are heard. Lungs: Clear on auscultation. Abdomen: Soft, protuberant, and obese. No hepatosplenomegaly or palpable masses are felt. There is a reducible umbilical hernia. Bowel sounds are hyperactive. No bruits are heard. Extremities: No calf tenderness or dependent edema. Pulses are equal. The right arm is bandaged. DIAGNOSTIC DATA: ECG March 25, 2019; sinus rhythm with probable intraatrial conduction abnormality. Early transition in V2. Normal ST and T waves. Baseline artifacts are recorded. No previous ECG is available for comparison. LABORATORY DATA: CBC March 28, 2019; WBC 6100, hemoglobin 10.5 g/dL, MCV 98.8 (elevated), MCH 34.2 (elevated), platelet count 143,000. Differential; neutrophils 61.1%, lymphocytes 16.0%, monocytes elevated at 11.1%, eosinophils 3.3%, basophils 0.5%, ESR was elevated on March 25, 2019, at 107 mm/hr. CMP March 28, 2019; sodium 140, potassium 4.1, chloride 108, CO2 is 24 mmol/L, BUN 16.3, creatinine 1.2 mg/dL. Random glucose is 99 mg/dL, calcium 9.4 mg/dL. C-reactive protein on admission is elevated at 8.1. LFTs on March 27, 2019; total bilirubin 1.0, AST elevated at 46, ALT 42, alkaline phosphatase 93 units/L. IMPRESSION: 1. Coronary artery disease, angina pectoris status post percutaneous coronary intervention/drug-eluting stent. 2. Hypertension, hypertensive cardiovascular disease. Currently normotensive. 3. Dyslipidemia. 4. Ethanol excess. 5. Anemia. Etiology to be determined. 6. Recent infected olecranon cyst. 7. Exogenous obesity. 8. History of paroxysmal atrial fibrillation presently in sinus rhythm. RECOMMENDATION: 1. Follow up ECG. 2. Evaluation of anemia. 3. Consider obtaining B12 and folic acid levels. 4. Need counseling regarding issues of excessive ethanol. 5. Continue medications as outlined. Thank you for your referral. ASYA MUELLER M.D. [id number]
[2019-03-31] MEDS ORDERED: PT OWN MED DRAWER 7, Y5N ONE ×2 (09:40→13:49)
[2019-03-31] MEDS: CLOPIDOGREL BISULFATE 75 MG TABLET (FP) PO SCH (09:43)
[2019-03-31] MEDS: METOPROLOL TARTRATE 50 MG TABLET (FP) PO SCH (09:43)
[2019-03-31] MEDS: LOSARTAN POTASSIUM 50 MG TABLET (FP) PO SCH (09:44)
[2019-03-31] MEDS: ENOXAPARIN NA (PORCINE) 40 MG/0.4 ML DISP.SYRIN SQ SCH (09:44)
[2019-03-31 10:40] LABS: BLOOD UREA NITROGEN 18.9 mg/dL (7-18); CALCIUM 9.1 mg/dL (8.5-10.1); CREATININE 1.2 mg/dL (0.55-1.3); POTASSIUM 4.1 mmol/L (3.5-5.1)
[2019-03-31 11:13] LABS: ANISOCYTOSIS 2+; MACROCYTOSIS 0; PLATELET ESTIMATE NORMAL
--- NOTE | 2019-03-31 13:00 | PN ---
Progress Note, Physician History of Present Illness: patients doing well no new issues - Current Medication List Current Medications: Active Medications Acetaminophen (Tylenol -) 650 mg PO Q6H PRN PRN Reason: PAIN LEVEL 5-10 Last Admin: 03/30/19 21:58 Dose: 650 mg Atorvastatin Calcium (Lipitor -) 80 mg PO HS [facility] Last Admin: 03/30/19 21:58 Dose: 80 mg Clopidogrel Bisulfate (Plavix -) 75 mg PO DAILY [facility] Last Admin: 03/31/19 09:43 Dose: 75 mg Diltiazem HCl (Cardizem Cd -) 120 mg PO DAILY [facility] Last Admin: 03/31/19 09:43 Dose: 120 mg Enoxaparin Sodium (Lovenox -) 40 mg SQ DAILY [facility] Last Admin: 03/31/19 09:44 Dose: 40 mg Fentanyl (Sublimaze Injection -) 50 mcg IVPUSH [id number] PRN PRN Reason: PAIN-PACU ORDER X 4 DOSES ONLY Ampicillin Sodium/Sulbactam (Sodium 3 gm/ Sodium Chloride) 100 mls @ 200 mls/ hr IVPB Q6H-IV [facility] Last Admin: 03/31/19 10:12 Dose: 200 mls/hr Vancomycin HCl 1,500 mg/ (Dextrose) 500 mls @ 250 mls/hr IVPB Q24H [facility]; Protocol Last Admin: 03/30/19 14:06 Dose: 250 mls/hr Losartan Potassium (Cozaar -) 100 mg PO DAILY [facility] Last Admin: 03/31/19 09:44 Dose: 100 mg Metoprolol Tartrate (Lopressor -) 100 mg PO DAILY [facility] Last Admin: 03/31/19 09:43 Dose: 100 mg Ondansetron HCl (Zofran Injection) 4 mg IVPUSH Q6H PRN PRN Reason: NAUSEA AND/OR VOMITING Oxycodone HCl (Roxicodone -) 5 mg PO Q4H PRN PRN Reason: PAIN LEVEL 6-10 - Objective Vital Signs: Vital Signs Temperature 98 F 03/31/19 12:00 Pulse Rate 68 03/31/19 12:00 Respiratory Rate 20 03/31/19 12:00 Blood Pressure 112/66 03/31/19 12:00 O2 Sat by Pulse Oximetry (%) 96 03/31/19 09:00 Constitutional: Yes: No Distress, Calm Cardiovascular: Yes: S1, S2 Respiratory: Yes: Regular, CTA Bilaterally Gastrointestinal: Yes: Normal Bowel Sounds, Soft Musculoskeletal: Yes: WNL Extremities: Yes: Other Wound/Incision: Yes: Dressing Dry and Intact Neurological: Yes: Alert, Oriented Psychiatric: Yes: Alert, Oriented Labs: CBC, BMP 03/31/19 07:37 03/31/19 07:37 INR, PTT INR 1.09 (0.83-1.09) 03/25/19 12:55 Assessment/Plan Problem List - Problems (1) Cellulitis Problems reviewed: Yes Code(s): L03.90 - CELLULITIS, UNSPECIFIED (2) Coronary artery disease Problems reviewed: Yes Code(s): I25.10 - ATHSCL HEART DISEASE OF [place] CORONARY ARTERY W/O ANG PCTRS (3) Hypertension Problems reviewed: Yes Code(s): I10 - ESSENTIAL (PRIMARY) HYPERTENSION (4) Hypercholesterolemia Problems reviewed: Yes Code(s): E78.00 - PURE HYPERCHOLESTEROLEMIA, UNSPECIFIED (5) Atrial fibrillation with RVR Problems reviewed: Yes Code(s): I48.91 - UNSPECIFIED ATRIAL FIBRILLATION (6) Soft tissue mass Problems reviewed: Yes Code(s): M79.89 - OTHER SPECIFIED SOFT TISSUE DISORDERS plan post op patient doing well patient can be discharged on oral abx if there is no residual tissue left can be discharged on oral augmentin for another week wound care rest as per the team
[2019-03-31] MEDS: VANCOMYCIN HCL 1,500 MG in DEXTROSE 5%-WATER - 500 ML IVPB SCH (13:59)
[2019-03-31] MEDS: ACETAMINOPHEN 325 MG TABLET (FP) PO PRN ×2 (14:06→21:34)
--- NOTE | 2019-03-31 15:28 | PATH ---
Surgical Pathology Report Patient Name: RERE SWAIN Med. Rec. #: [id number] /Age/Gender: 1955 (Age: 63) / M Account: [id number] Location: [facility] MED/SURG Taken: 03/28/2019 Received: 03/28/2019 Reported: 03/31/2019 Physicians: Tristian Chairez M.D. Specimen(s) Received RIGHT OLECRANON BURSA Clinical History Cellulitis, soft tissue mass right elbow Final Diagnosis OLECRANON BURSA, RIGHT, INCISION AND DRAINAGE: SKIN AND UNDERLYING SUBCUTANEOUS TISSUE WITH MARKED ACUTE AND CHRONIC INFLAMMATION, ACUTE FIBRINOPURULENT EXUDATE, GRANULATION TISSUE, AND REACTIVE CHANGES. Electronically Signed Jazlyn See M.D. Gross Description Received in formalin labeled "right olecranon bursa," is an 11.0 x 10.0 x 4.4 cm aggregate of necrotic skin and soft tissue fragments. A dairy supplies sales representative portion is submitted in one cassette. /03/28/2019 saudi03/28/2019
[2019-03-31] MEDS: ATORVASTATIN CA 80 MG TABLET (FP) PO SCH (21:31)
[2019-04-01 07:35] LABS: BASO % 0.8 % (0-2.0); EOS % 3.4 % (0-4.5); HEMATOCRIT 28.4 % (35.4-49); HEMOGLOBIN 9.9 GM/dL (11.7-16.9); LYMPH % 24.9 % (8-40); MCH 34.1 pg (25.7-33.7); MCHC 34.9 g/dl (32.0-35.9); MEAN CELL VOLUME 97.7 fl (80-96); MEAN PLT VOLUME 7.7 fl (7.5-11.1); MONO % 10.3 % (3.8-10.2); NEUT % 60.6 % (42.8-82.8); PLATELET COUNT 205 K/MM3 (134-434); RBC 2.91 M/mm3 (4.00-5.60); RDW 12.7 % (11.9-15.9); WHITE BLOOD COUNT 5.9 K/mm3 (4.0-10.0)
[2019-04-01 08:02] LABS: BLOOD UREA NITROGEN 17.7 mg/dL (7-18); CALCIUM 9.3 mg/dL (8.5-10.1); CREATININE 1.1 mg/dL (0.55-1.3); POTASSIUM 4.2 mmol/L (3.5-5.1)
[2019-04-01] MEDS: CLOPIDOGREL BISULFATE 75 MG TABLET (FP) PO SCH (09:30)
[2019-04-01] MEDS: ENOXAPARIN NA (PORCINE) 40 MG/0.4 ML DISP.SYRIN SQ SCH (09:31)
[2019-04-01] MEDS: METOPROLOL TARTRATE 50 MG TABLET (FP) PO SCH (09:31)
[2019-04-01] MEDS: LOSARTAN POTASSIUM 50 MG TABLET (FP) PO SCH (09:31)
[2019-04-01 15:17] VITALS: BP 125/53; PULSE 77; TEMP 98.1
== END 2019-04-01 10:40 | disposition home or self-care (01) | DRG 581 ==
LOC: JER 11:09 → JERBED 14:49 → J8W 21:36 → UNDODISIN 03-26 16:06
PROVIDERS: ADMIT Internal Medicine; ATTEND Internal Medicine
PROC: 0JX Subcutaneous Tissue and Fascia, Transfer (ICD-10-PCS; 2019-03-28)
PROC: 0MB30ZZ Excision of Right Elbow Bursa and Ligament, Open Approach (ICD-10-PCS; 2019-03-28)
PROC: 0PBK0ZZ Excision of Right Ulna, Open Approach (ICD-10-PCS; principal; 2019-03-28 08:00)
DX: L03.113 Cellulitis of right upper limb (principal); M79.89 Other specified soft tissue disorders; M25.421 Effusion, right elbow; M25.521 Pain in right elbow; I25.10 Atherosclerotic heart disease of native coronary artery without angina pectoris; M71.521 Other bursitis, not elsewhere classified, right elbow; I10 Essential (primary) hypertension; E78.00 Pure hypercholesterolemia, unspecified; I48.91 Unspecified atrial fibrillation; B95.1 Streptococcus, group B, as the cause of diseases classified elsewhere; B96.89 Other specified bacterial agents as the cause of diseases classified elsewhere; Z95.5 Presence of coronary angioplasty implant and graft
CPT/HCPCS: 36415; 71045-TC-FY; 73070-TC-RT-FY; 73090-TC-RT-FY; 73130-TC-RT-FY; 80048; 80053; 85025; 85610; 85651; 85730; 86140; 87040; 87070; 87077; 87186; 87205; 88304-TC; 93005; 93010; 93971; 94760; 99284-25; J7030

== ENCOUNTER 2021-07-11 12:23 | Inpatient (IN) | payer OTHER ==
[2021-07-11 17:36] LABS: BASO % 0.2 % (0-2.0); EOS % 0.9 % (0-4.5); HEMATOCRIT 16.3 % (35.4-49); LYMPH % 13.6 % (8-40); MCH 29.4 pg (25.7-33.7); MCHC 32.4 g/dl (32.0-35.9); MEAN CELL VOLUME 90.8 fl (80-96); MONO % 10.6 % (3.8-10.2); NEUT % 74.7 % (42.8-82.8); RDW 15.3 % (11.9-15.9); WHITE BLOOD COUNT 5.7 K/mm3 (4.0-10.0)
[2021-07-11 17:56] LABS: ALBUMIN 3.4 g/dl (3.4-5.0); BLOOD UREA NITROGEN 28.8 mg/dL (7-18)
[2021-07-11 17:58] LABS: CREATININE 1.8 mg/dL (0.55-1.3)
[2021-07-11 17:59] LABS: HEMOGLOBIN 5.3 GM/dL (11.7-16.9); PLATELET COUNT 66 10^3/uL (134-434)
[2021-07-11 18:00] LABS: BILIRUBIN,TOTAL 1.1 mg/dL (0.2-1); TOT PROT 7.1 g/dl (6.4-8.2)
[2021-07-11] MEDS ORDERED: PANTOPRAZOLE SODIUM 40 MG VIAL IVPUSH ONE (18:01)
[2021-07-11] MEDS ORDERED: PANTOPRAZOLE SODIUM 40 MG/100 ML BAG IVPB ONE (18:08)
[2021-07-11] MEDS ORDERED: PANTOPRAZOLE SODIUM 40 MG VIAL ONE (18:08)
[2021-07-11] MEDS ORDERED: ACETAMINOPHEN 325 MG TABLET (FP) PO PRN (20:07)
[2021-07-11 20:38] LABS: INR 1.21 (0.83-1.09); PROTHROMBIN TIME (PATIENT) 13.9 SEC (9.7-13.0)
[2021-07-11 20:40] LABS: ACTIVATED PTT 32.5 SECONDS (25.2-36.5)
[2021-07-11] MEDS ORDERED: ATORVASTATIN CA 80 MG TABLET (FP) ONE (23:21)
[2021-07-11] MEDS: ATORVASTATIN CA 80 MG TABLET (FP) PO SCH (23:23)
[2021-07-12 07:36] LABS: HEMATOCRIT 19.5 % (35.4-49); MCH 29.4 pg (25.7-33.7); MCHC 33.5 g/dl (32.0-35.9); MEAN CELL VOLUME 87.9 fl (80-96); MEAN PLT VOLUME 7.6 fl (7.5-11.1); PLATELET COUNT 65 10^3/uL (134-434); RBC 2.22 M/mm3 (4.00-5.60); RDW 16.8 % (11.9-15.9); WHITE BLOOD COUNT 5.2 K/mm3 (4.0-10.0)
[2021-07-12 07:40] LABS: HEMOGLOBIN 6.5 GM/dL (11.7-16.9)
[2021-07-12 07:53] LABS: CALCIUM 8.6 mg/dL (8.5-10.1)
[2021-07-12 07:55] LABS: BLOOD UREA NITROGEN 26.8 mg/dL (7-18); MAGNESIUM 2.2 mg/dL (1.8-2.4)
[2021-07-12 07:57] LABS: CREATININE 1.6 mg/dL (0.55-1.3)
[2021-07-12] MEDS ORDERED: LORazepam 2 MG/ML SDV VIAL IVPB PRN (08:36)
[2021-07-12] MEDS ORDERED: PANTOPRAZOLE SODIUM 40 MG VIAL IVPUSH SCH (09:00)
[2021-07-12 09:21] LABS: PHOSPHOROUS 4.2 mg/dL (2.5-4.9)
[2021-07-12 09:26] LABS: N-TERMINAL BNP 225.9 pg/ml (5-125)
[2021-07-12] MEDS ORDERED: PANTOPRAZOLE 40 MG TABLET PO SCH (10:00)
[2021-07-12] MEDS ORDERED: LOSARTAN POTASSIUM 50 MG TABLET PO SCH (10:00)
[2021-07-12] MEDS ORDERED: METOPROLOL TARTRATE 50 MG TABLET (FP) ONE (10:10)
[2021-07-12] MEDS ORDERED: PANTOPRAZOLE SODIUM 40 MG VIAL ONE (10:23)
[2021-07-12] MEDS: METOPROLOL TARTRATE 50 MG TABLET (FP) PO SCH (11:06)
[2021-07-12] MEDS ORDERED: FUROSEMIDE 40 MG/4 ML INJECTABLE VIAL IVPUSH ONE (11:14)
[2021-07-12] MEDS ORDERED: THIAMINE HCL 200 MG/2 ML VIAL ONE (12:05)
[2021-07-12] MEDS ORDERED: FUROSEMIDE 40 MG/4 ML INJECTABLE VIAL ONE (12:05)
[2021-07-12] MEDS: THIAMINE HCL 200 MG/2 ML VIAL IVPB SCH (12:27)
[2021-07-12 18:56] LABS: BASO % 0.3 % (0-2.0); EOS % 1.5 % (0-4.5); HEMATOCRIT 22.1 % (35.4-49); HEMOGLOBIN 7.3 GM/dL (11.7-16.9); LYMPH % 13.6 % (8-40); MCH 28.6 pg (25.7-33.7); MEAN CELL VOLUME 86.8 fl (80-96); MEAN PLT VOLUME 7.5 fl (7.5-11.1); MONO % 11.8 % (3.8-10.2); NEUT % 72.8 % (42.8-82.8); PLATELET COUNT 69 10^3/uL (134-434); RBC 2.55 M/mm3 (4.00-5.60); RDW 16.8 % (11.9-15.9); WHITE BLOOD COUNT 6.1 K/mm3 (4.0-10.0)
[2021-07-12 19:49] VITALS: BMI 33.0
[2021-07-12] MEDS: ATORVASTATIN CA 80 MG TABLET (FP) PO SCH (21:18)
[2021-07-12] MEDS: PANTOPRAZOLE 40 MG TABLET PO SCH (21:19)
[2021-07-12] MEDS: LORazepam 2 MG/ML SDV VIAL IVPUSH PRN (21:22)
[2021-07-13 07:45] LABS: BASO % 0.5 % (0-2.0); EOS % 2.3 % (0-4.5); HEMATOCRIT 21.6 % (35.4-49); HEMOGLOBIN 7.3 GM/dL (11.7-16.9); LYMPH % 20.5 % (8-40); MCH 29.1 pg (25.7-33.7); MCHC 33.6 g/dl (32.0-35.9); MEAN CELL VOLUME 86.7 fl (80-96); MEAN PLT VOLUME 7.4 fl (7.5-11.1); MONO % 9.7 % (3.8-10.2); PLATELET COUNT 67 10^3/uL (134-434); RBC 2.49 M/mm3 (4.00-5.60); RDW 17.1 % (11.9-15.9); WHITE BLOOD COUNT 5.6 K/mm3 (4.0-10.0)
[2021-07-13 08:06] LABS: CALCIUM 8.2 mg/dL (8.5-10.1)
[2021-07-13 08:07] LABS: ALBUMIN 3.4 g/dl (3.4-5.0); BLOOD UREA NITROGEN 22.5 mg/dL (7-18)
[2021-07-13 08:08] LABS: CREATININE 1.6 mg/dL (0.55-1.3)
[2021-07-13 08:09] LABS: BILIRUBIN,TOTAL 2.4 mg/dL (0.2-1)
[2021-07-13 08:37] LABS: BILIRUBIN,DIRECT 0.7 mg/dL (0.0-0.2)
[2021-07-13] MEDS: THIAMINE HCL 200 MG/2 ML VIAL IVPB SCH (09:34)
[2021-07-13] MEDS: PANTOPRAZOLE 40 MG TABLET PO SCH ×2 (09:35→21:45)
[2021-07-13] MEDS: METOPROLOL TARTRATE 50 MG TABLET (FP) PO SCH (09:35)
[2021-07-13 12:50] LABS: MAGNESIUM 2.1 mg/dL (1.8-2.4)
[2021-07-13 12:53] LABS: PHOSPHOROUS 4.4 mg/dL (2.5-4.9)
[2021-07-13] MEDS: ATORVASTATIN CA 80 MG TABLET (FP) PO SCH (21:44)
[2021-07-13] MEDS: LORazepam 2 MG/ML SDV VIAL IVPUSH PRN (21:45)
[2021-07-13 21:58] LABS: BASO % 0.4 % (0-2.0); EOS % 1.7 % (0-4.5); HEMATOCRIT 23.9 % (35.4-49); LYMPH % 16.4 % (8-40); MCHC 33.2 g/dl (32.0-35.9); MEAN CELL VOLUME 87.1 fl (80-96); MEAN PLT VOLUME 7.4 fl (7.5-11.1); NEUT % 69.5 % (42.8-82.8); PLATELET COUNT 73 10^3/uL (134-434); RBC 2.75 M/mm3 (4.00-5.60); RDW 16.8 % (11.9-15.9); WHITE BLOOD COUNT 7.1 K/mm3 (4.0-10.0)
[2021-07-14 07:48] LABS: BASO % 0.2 % (0-2.0); EOS % 2.2 % (0-4.5); HEMATOCRIT 24.3 % (35.4-49); HEMOGLOBIN 8.1 GM/dL (11.7-16.9); LYMPH % 19.4 % (8-40); MCH 28.9 pg (25.7-33.7); MCHC 33.3 g/dl (32.0-35.9); MEAN PLT VOLUME 7.4 fl (7.5-11.1); NEUT % 68.2 % (42.8-82.8); PLATELET COUNT 72 10^3/uL (134-434); RBC 2.79 M/mm3 (4.00-5.60); RDW 16.5 % (11.9-15.9); WHITE BLOOD COUNT 5.5 K/mm3 (4.0-10.0)
[2021-07-14 07:55] LABS: INR 1.33 (0.83-1.09); PROTHROMBIN TIME (PATIENT) 15.3 SEC (9.7-13.0)
[2021-07-14 08:25] LABS: ALBUMIN 3.4 g/dl (3.4-5.0); CALCIUM 8.2 mg/dL (8.5-10.1)
[2021-07-14 08:27] LABS: BILIRUBIN,DIRECT 0.6 mg/dL (0.0-0.2)
[2021-07-14 08:29] LABS: CREATININE 1.5 mg/dL (0.55-1.3)
[2021-07-14 08:30] LABS: BILIRUBIN,TOTAL 2.5 mg/dL (0.2-1)
[2021-07-14 08:33] LABS: TOT PROT 6.9 g/dl (6.4-8.2)
[2021-07-14] MEDS ORDERED: IRON SUCROSE INJECTION 200 MG in SODIUM CHLORIDE 90 ML IVPB ONE ×2 (10:01→12:00)
[2021-07-14] MEDS ORDERED: DEXTROSE 5%-0.45% SALINE 1,000 ML IV SCH (10:15)
[2021-07-14] MEDS: PANTOPRAZOLE 40 MG TABLET PO SCH ×2 (10:50→21:08)
[2021-07-14] MEDS: THIAMINE HCL 200 MG/2 ML VIAL IVPB SCH (10:51)
[2021-07-14] MEDS: METOPROLOL TARTRATE 50 MG TABLET (FP) PO SCH (10:51)
[2021-07-14] MEDS: ATORVASTATIN CA 80 MG TABLET (FP) PO SCH (21:08)
[2021-07-15 07:31] LABS: BASO % 0.4 % (0-2.0); EOS % 2.5 % (0-4.5); HEMATOCRIT 23.7 % (35.4-49); LYMPH % 17.1 % (8-40); MCH 29.7 pg (25.7-33.7); MCHC 33.7 g/dl (32.0-35.9); MEAN CELL VOLUME 88.2 fl (80-96); MEAN PLT VOLUME 7.9 fl (7.5-11.1); MONO % 9.7 % (3.8-10.2); NEUT % 70.3 % (42.8-82.8); PLATELET COUNT 74 10^3/uL (134-434); RBC 2.68 M/mm3 (4.00-5.60); RDW 16.5 % (11.9-15.9); RETICULOCYTES 5.71 % (0.5-1.5); WHITE BLOOD COUNT 6.3 K/mm3 (4.0-10.0)
[2021-07-15 07:45] LABS: CALCIUM 8.1 mg/dL (8.5-10.1)
[2021-07-15 07:46] LABS: ALBUMIN 3.6 g/dl (3.4-5.0); BLOOD UREA NITROGEN 21.4 mg/dL (7-18)
[2021-07-15 07:48] LABS: BILIRUBIN,DIRECT 0.6 mg/dL (0.0-0.2)
[2021-07-15 07:49] LABS: CREATININE 1.5 mg/dL (0.55-1.3)
[2021-07-15 07:50] LABS: BILIRUBIN,TOTAL 1.7 mg/dL (0.2-1); TOT PROT 7.1 g/dl (6.4-8.2)
[2021-07-15] MEDS: PANTOPRAZOLE 40 MG TABLET PO SCH (09:07)
[2021-07-15] MEDS: METOPROLOL TARTRATE 50 MG TABLET (FP) PO SCH (09:07)
[2021-07-15 09:08] VITALS: TEMP 98.7
[2021-07-15] MEDS ORDERED: THIAMINE HCL 100 MG TABLET (FP) PO SCH (10:00)
[2021-07-15] MEDS ORDERED: IRON SUCROSE INJECTION 300 MG in SODIUM CHLORIDE 235 ML IVPB ONE (11:00)
[2021-07-15 14:34] VITALS: BP 132/69; PULSE 68
== END 2021-07-15 14:34 | disposition home or self-care (01) | DRG 241 ==
LOC: JER 12:23 → JERBED 18:17 → J4S 07-12 19:06
PROVIDERS: ADMIT Hospitalist; ATTEND Internal Medicine
PROC: 30233N1 Transfusion of Nonautologous Red Blood Cells into Peripheral Vein, Percutaneous Approach (ICD-10-PCS; 2021-07-11)
PROC: 0W3P8ZZ Control Bleeding in Gastrointestinal Tract, Via Natural or Artificial Opening Endoscopic (ICD-10-PCS; 2021-07-14)
PROC: 0DB68ZX Excision of Stomach, Via Natural or Artificial Opening Endoscopic, Diagnostic (ICD-10-PCS; principal; 2021-07-14 08:30)
DX: K25.0 Acute gastric ulcer with hemorrhage (principal); I25.10 Atherosclerotic heart disease of native coronary artery without angina pectoris; E78.00 Pure hypercholesterolemia, unspecified; Z95.5 Presence of coronary angioplasty implant and graft; I48.91 Unspecified atrial fibrillation; R07.89 Other chest pain; I10 Essential (primary) hypertension; K44.9 Diaphragmatic hernia without obstruction or gangrene; F10.10 Alcohol abuse, uncomplicated; D50.0 Iron deficiency anemia secondary to blood loss (chronic); D69.6 Thrombocytopenia, unspecified; N17.9 Acute kidney failure, unspecified; R16.0 Hepatomegaly, not elsewhere classified; D62 Acute posthemorrhagic anemia; D49.0 Neoplasm of unspecified behavior of digestive system; K31.89 Other diseases of stomach and duodenum
CPT/HCPCS: 36415; 36430; 71045-TC-FY; 74177-TC; 76700-TC; 80048; 80053; 80076; 82105; 82248; 82272; 82378; 82607; 82728; 83010; 83516; 83540; 83550; 83615; 83735; 83880; 84100; 84484; 85025; 85027; 85045; 85610; 85730; 86038; 86140; 86708; 86803; 86850; 86900; 86901; 86922; 87340; 87517; 88305-TC; 93005; 93010; 93306-TC; 99285-25; C9803-CS; J1756; P9058; Q9967; U0003; U0005

== ENCOUNTER 2023-04-19 21:34 | Inpatient (IN) | payer MEDICARE, OTHER ==
[2023-04-19] MEDS ORDERED: NOREPINEPHRINE BITARTRATE/D5W 8 MG/250 ML BAG IVPB ONE (21:40)
[2023-04-19] MEDS ORDERED: GLUCAGON 1 MG KIT ONE (21:50)
[2023-04-19] MEDS: GLUCAGON 1 MG KIT IVPUSH ONE (21:52)
[2023-04-19] MEDS: CALCIUM CHLORIDE 10% 1 GM/10 ML *VIAL IVPUSH ONE (21:52)
[2023-04-19] MEDS ORDERED: MIDAZOLAM IN 0.9 % SOD.CHLORID 1 MG/1 ML PLAST..BAG ONE (21:53)
[2023-04-19] MEDS: MIDAZOLAM IN 0.9 % SOD.CHLORID 100 MG/100 ML PLAST..BAG IVPB SCH (21:55)
[2023-04-19 22:06] LABS: VENOUS BASE EXCESS -17.8 mmol/L (-2-2); VENOUS O2 SATURATION 67.7 % (70-80); VENOUS PCO2 57.6 mmHg (38-52)
[2023-04-19 22:09] LABS: VENOUS PH 6.979 (7.310-7.410)
[2023-04-19 22:12] LABS: HEMATOCRIT 26.2 % (35.4-49); HEMOGLOBIN 8.2 GM/dL (11.7-16.9); MCH 27.8 pg (25.7-33.7); MCHC 31.2 g/dl (32.0-35.9); MEAN CELL VOLUME 88.9 fl (80-96); MEAN PLT VOLUME 7.1 fl (7.5-11.1); PLATELET COUNT 111 10^3/uL (134-434); RBC 2.95 M/mm3 (4.00-5.60); RDW 17.4 % (11.9-15.9); WHITE BLOOD COUNT 9.5 K/mm3 (4.0-10.0)
[2023-04-19 22:16] LABS: INR 1.25 (0.83-1.09); PROTHROMBIN TIME (PATIENT) 14.5 SEC (9.7-13.0)
[2023-04-19 22:19] LABS: ACTIVATED PTT 33.3 SECONDS (25.2-36.5)
[2023-04-19] MEDS: SODIUM BICARBONATE 8.4% 50 MEQ/50 ML DISP.SYRIN IVPUSH ONE (22:25)
[2023-04-19 22:28] LABS: POTASSIUM 4.3 mmol/L (3.5-5.1)
[2023-04-19 22:30] LABS: ALBUMIN 3.3 g/dl (3.4-5.0); BLOOD UREA NITROGEN 12.2 mg/dL (7-18); CALCIUM 7.9 mg/dL (8.5-10.1)
[2023-04-19 22:31] LABS: URINE APPEARANCE CLEAR; URINE BILIRUBIN NEGATIVE (NEGATIVE); URINE COLOR YELLOW; URINE GLUCOSE (UA) NEGATIVE (NEGATIVE); URINE KETONE NEGATIVE (NEGATIVE); URINE LEUK ESTERASE NEGATIVE (NEGATIVE); URINE NITRITE NEGATIVE (NEGATIVE); URINE PROTEIN 2+ (NEGATIVE); URINE UROBILINOGEN 0.2 mg/dL (0.2-1.0)
[2023-04-19 22:32] LABS: CREATININE 1.5 mg/dL (0.55-1.3)
[2023-04-19 22:35] LABS: BILIRUBIN,TOTAL 0.9 mg/dL (0.2-1); TOT PROT 7.7 g/dl (6.4-8.2)
[2023-04-19 22:39] LABS: LACTIC ACID 7.9 mmol/L (0.4-2.0)
[2023-04-19 22:44] LABS: EPI CELLS 11 /uL (0-25.1); HYALINE CASTS 1 /uL (0-3.1); URINE BACTERIA 32 /uL (0-1359); URINE RBC 32 /uL (0-23.9); URINE WBC 3 /uL (0-25.8)
[2023-04-19] MEDS ORDERED: CALCIUM CHLORIDE 1 GM/10 ML *DISP.SYRIN ONE (22:53)
[2023-04-19 22:56] LABS: ANISOCYTOSIS 0; MACROCYTOSIS 0
[2023-04-19] MEDS ORDERED: LACTATED RINGERS SOLUTION 1,000 ML/1,000 ML INFUS.BAG IV SCH (23:45)
[2023-04-20 01:36] LABS: ARTERIAL BLD GAS O2 SATURATION 98.7 % (95-98); ARTERIAL BLOOD GAS BASE EXCESS -13.9 mmol/L (-2-2); ARTERIAL BLOOD GAS PO2 166.6 mmHg (80-100); BASO % 0.1 % (0-2.0); EOS % 0.2 % (0-4.5); HEMATOCRIT 21.8 % (35.4-49); MCH 27.8 pg (25.7-33.7); MCHC 32.3 g/dl (32.0-35.9); MEAN CELL VOLUME 86.1 fl (80-96); MEAN PLT VOLUME 6.8 fl (7.5-11.1); MONO % 12.8 % (3.8-10.2); NEUT % 79.9 % (42.8-82.8); PLATELET COUNT 71 10^3/uL (134-434); RBC 2.53 M/mm3 (4.00-5.60); RDW 17.2 % (11.9-15.9); WHITE BLOOD COUNT 7.2 K/mm3 (4.0-10.0)
[2023-04-20 01:43] LABS: ARTERIAL BLOOD GAS pH 7.176 (7.350-7.450)
[2023-04-20 01:45] LABS: METHADONE, UR NEGATIVE (NEGATIVE); OPIATES, URI NEGATIVE (NEGATIVE); URINE BARBITURATES NEGATIVE (NEGATIVE); URINE BENZODIAZEPINES NEGATIVE (NEGATIVE)
[2023-04-20 01:47] LABS: PHENCYCLIDINE,URINE NEGATIVE (NEGATIVE)
[2023-04-20 01:50] LABS: COCAINE, UR NEGATIVE (NEGATIVE); URINE AMPHETAMINES NEGATIVE (NEGATIVE)
[2023-04-20 01:54] LABS: POTASSIUM 5.3 mmol/L (3.5-5.1)
[2023-04-20 01:55] LABS: CALCIUM 8.3 mg/dL (8.5-10.1)
[2023-04-20] MEDS: SODIUM BICARBONATE 8.4% 50 MEQ/50 ML DISP.SYRIN IVPUSH ONE (01:56)
[2023-04-20 01:57] LABS: ALBUMIN 2.8 g/dl (3.4-5.0); BLOOD UREA NITROGEN 13.9 mg/dL (7-18); MAGNESIUM 1.3 mg/dL (1.8-2.4)
[2023-04-20] MEDS: LACTATED RINGERS SOLUTION 1000 ML INFUS.BAG IV ONE (01:57)
[2023-04-20 02:00] LABS: BILIRUBIN,TOTAL 0.8 mg/dL (0.2-1); CREATININE 1.6 mg/dL (0.55-1.3); TOT PROT 6.6 g/dl (6.4-8.2)
[2023-04-20] MEDS: VANCOMYCIN/WATER 1250 MG 1,250 MG/250 ML BAG IVPB ONE (02:03)
[2023-04-20 02:09] LABS: LACTIC ACID 5.6 mmol/L (0.4-2.0)
[2023-04-20] MEDS: HEPARIN NA (PORCINE) 5,000 UNITS/ML 1ML VIAL SQ SCH (02:20)
[2023-04-20] MEDS: THIAMINE HCL 200 MG/2 ML VIAL IVPB SCH (02:20)
[2023-04-20] MEDS: MUPIROCIN 2% TOPICAL OINTMENT FOR DECOLONIZATION NS SCH (02:21)
[2023-04-20] MEDS: PIPERACILLIN/TAZOB 2.25 GM 2.25 GM in DEXTROSE 5%-WATER - 50 ML IVPB SCH ×2 (02:30→15:38)
[2023-04-20] MEDS: DEXTROSE 5%-WATER - 1,000 ML with SODIUM BICARBONATE 8.4% - 150 MEQ IV SCH (02:37)
[2023-04-20] MEDS: MAGNESIUM SULFATE IN WATER 2 GM/50 ML IVPB IVPB ONE (02:38)
[2023-04-20] MEDS: FENTANYL NS IVPB 500 MCG/100 ML BAG IVPB SCH (02:44)
[2023-04-20 06:07] LABS: ARTERIAL BLD GAS O2 SATURATION 99.5 % (95-98); ARTERIAL BLOOD GAS BASE EXCESS -6.3 mmol/L (-2-2); ARTERIAL BLOOD GAS PO2 257.9 mmHg (80-100); ARTERIAL BLOOD GAS pH 7.291 (7.350-7.450)
[2023-04-20 06:19] LABS: VENT MODE A/C; VENT RATE 22
[2023-04-20] MEDS: levETIRAcetam 500 MG/5 ML INJECTION VIAL IVPB SCH (06:46)
[2023-04-20] MEDS: PROPOFOL 1,000,000 MCG/100 ML VIAL IVPUSH SCH (06:46)
[2023-04-20 06:48] LABS: BASO % 0.1 % (0-2.0); HEMATOCRIT 23.6 % (35.4-49); HEMOGLOBIN 7.4 GM/dL (11.7-16.9); LYMPH % 8.6 % (8-40); MCH 26.8 pg (25.7-33.7); MCHC 31.4 g/dl (32.0-35.9); MEAN CELL VOLUME 85.2 fl (80-96); MEAN PLT VOLUME 6.9 fl (7.5-11.1); MONO % 8.8 % (3.8-10.2); NEUT % 82.5 % (42.8-82.8); PLATELET COUNT 55 10^3/uL (134-434); RBC 2.77 M/mm3 (4.00-5.60); RDW 17.1 % (11.9-15.9); WHITE BLOOD COUNT 5.5 K/mm3 (4.0-10.0)
[2023-04-20 06:58] LABS: INR 1.28 (0.83-1.09); PROTHROMBIN TIME (PATIENT) 14.8 SEC (9.7-13.0)
[2023-04-20 07:00] LABS: ACTIVATED PTT 31.3 SECONDS (25.2-36.5)
[2023-04-20 07:06] LABS: POTASSIUM 5.1 mmol/L (3.5-5.1)
[2023-04-20 07:10] LABS: ALBUMIN 2.9 g/dl (3.4-5.0); BLOOD UREA NITROGEN 13.6 mg/dL (7-18); MAGNESIUM 2.1 mg/dL (1.8-2.4)
[2023-04-20 07:13] LABS: CREATININE 1.9 mg/dL (0.55-1.3); PHOSPHOROUS 6.1 mg/dL (2.5-4.9)
[2023-04-20 07:14] LABS: BILIRUBIN,TOTAL 0.9 mg/dL (0.2-1); TOT PROT 6.7 g/dl (6.4-8.2)
[2023-04-20 07:32] LABS: LACTIC ACID 3.2 mmol/L (0.4-2.0)
[2023-04-20] MEDS: LORazepam 2 MG/ML SDV VIAL IVPUSH ONE (11:05)
[2023-04-20] MEDS: LACTATED RINGERS SOLUTION 1,000 ML/1,000 ML INFUS.BAG IV SCH (11:45)
[2023-04-20] MEDS: PANTOPRAZOLE SODIUM 40 MG VIAL IVPUSH SCH (11:45)
[2023-04-20] MEDS: SODIUM BICARBONATE 8.4% - 150 MEQ in DEXTROSE 5%-WATER - 1,000 ML IVPB SCH (13:28)
[2023-04-20 14:10] LABS: HEMATOCRIT 21.2 % (35.4-49); MCHC 32.1 g/dl (32.0-35.9); MEAN PLT VOLUME 6.4 fl (7.5-11.1); PLATELET COUNT 52 10^3/uL (134-434); RBC 2.52 M/mm3 (4.00-5.60); RDW 16.8 % (11.9-15.9); WHITE BLOOD COUNT 5.9 K/mm3 (4.0-10.0)
[2023-04-20 14:21] LABS: HEMOGLOBIN 6.8 GM/dL (11.7-16.9)
[2023-04-20 14:37] LABS: POTASSIUM 4.6 mmol/L (3.5-5.1)
[2023-04-20 14:41] LABS: ALBUMIN 2.6 g/dl (3.4-5.0); BLOOD UREA NITROGEN 17.2 mg/dL (7-18); CALCIUM 8.2 mg/dL (8.5-10.1)
[2023-04-20 14:44] LABS: CREATININE 2.3 mg/dL (0.55-1.3)
[2023-04-20 14:49] LABS: BILIRUBIN,TOTAL 0.9 mg/dL (0.2-1)
[2023-04-20] MEDS: LORazepam 2 MG/ML SDV VIAL IVPUSH SCH (15:37)
[2023-04-20 17:01] LABS: ARTERIAL BLD GAS O2 SATURATION 97.1 % (95-98); ARTERIAL BLOOD GAS BASE EXCESS 0 mmol/L (-2-2); ARTERIAL BLOOD GAS PO2 81.7 mmHg (80-100); ARTERIAL BLOOD GAS pH 7.512 (7.350-7.450)
[2023-04-20 17:31] LABS: VENT MODE A/C; VENT RATE 22
[2023-04-20] MEDS: NOREPINEPHRINE BITARTRATE/D5W 8 MG/250 ML BAG IVPB SCH (20:13)
[2023-04-20 21:01] LABS: BASO % 0.1 % (0-2.0); EOS % 0.6 % (0-4.5); HEMATOCRIT 15.5 % (35.4-49); LYMPH % 17.7 % (8-40); MCH 27.7 pg (25.7-33.7); MCHC 33.1 g/dl (32.0-35.9); MEAN CELL VOLUME 83.9 fl (80-96); MONO % 6.7 % (3.8-10.2); NEUT % 74.9 % (42.8-82.8); RBC 1.85 M/mm3 (4.00-5.60); RDW 16.1 % (11.9-15.9); WHITE BLOOD COUNT 3.3 K/mm3 (4.0-10.0)
[2023-04-20 21:11] LABS: HEMOGLOBIN 5.1 GM/dL (11.7-16.9); PLATELET COUNT 33 10^3/uL (134-434)
[2023-04-20] MEDS: CHLORHEXIDINE GLUCONATE 4% CLEANSER FOR DECOLONIZATION TP SCH (21:13)
[2023-04-20 21:24] LABS: LACTIC ACID 2.7 mmol/L (0.4-2.0)
[2023-04-21 02:50] LABS: ARTERIAL BLD GAS O2 SATURATION 98.4 % (95-98); ARTERIAL BLOOD GAS BASE EXCESS -1.3 mmol/L (-2-2); ARTERIAL BLOOD GAS PO2 105.6 mmHg (80-100); ARTERIAL BLOOD GAS pH 7.534 (7.350-7.450)
[2023-04-21 02:53] LABS: ALLENS TEST POSITIVE
[2023-04-21 02:54] LABS: PT'S TEMP 94; VENT MODE V/AC; VENT RATE 22
[2023-04-21 03:27] LABS: BASO % 0.7 % (0-2.0); EOS % 1.2 % (0-4.5); HEMATOCRIT 24.4 % (35.4-49); HEMOGLOBIN 8.3 GM/dL (11.7-16.9); LYMPH % 14.2 % (8-40); MCH 28.1 pg (25.7-33.7); MCHC 33.9 g/dl (32.0-35.9); MEAN PLT VOLUME 6.7 fl (7.5-11.1); MONO % 6.9 % (3.8-10.2); PLATELET COUNT 54 10^3/uL (134-434); RBC 2.94 M/mm3 (4.00-5.60); RDW 16.3 % (11.9-15.9); WHITE BLOOD COUNT 5.3 K/mm3 (4.0-10.0)
[2023-04-21 03:33] LABS: INR 1.46 (0.83-1.09); PROTHROMBIN TIME (PATIENT) 16.9 SEC (9.7-13.0)
[2023-04-21] MEDS: MIDAZOLAM IN 0.9 % SOD.CHLORID 100 MG/100 ML PLAST..BAG IVPB SCH (06:19)
[2023-04-21 07:20] LABS: BASO % 0.2 % (0-2.0); EOS % 0.9 % (0-4.5); HEMATOCRIT 24.6 % (35.4-49); HEMOGLOBIN 8.2 GM/dL (11.7-16.9); LYMPH % 14.2 % (8-40); MCH 27.8 pg (25.7-33.7); MCHC 33.4 g/dl (32.0-35.9); MEAN CELL VOLUME 83.4 fl (80-96); MEAN PLT VOLUME 6.8 fl (7.5-11.1); MONO % 7.3 % (3.8-10.2); NEUT % 77.4 % (42.8-82.8); PLATELET COUNT 52 10^3/uL (134-434); RBC 2.95 M/mm3 (4.00-5.60); RDW 16.5 % (11.9-15.9); WHITE BLOOD COUNT 6.1 K/mm3 (4.0-10.0)
[2023-04-21 07:28] LABS: POTASSIUM 3.6 mmol/L (3.5-5.1)
[2023-04-21 07:31] LABS: ALBUMIN 2.3 g/dl (3.4-5.0); CALCIUM 7.2 mg/dL (8.5-10.1)
[2023-04-21 07:33] LABS: BLOOD UREA NITROGEN 18.9 mg/dL (7-18); MAGNESIUM 1.3 mg/dL (1.8-2.4)
[2023-04-21 07:34] LABS: PHOSPHOROUS 3.3 mg/dL (2.5-4.9)
[2023-04-21 07:37] LABS: BILIRUBIN,TOTAL 2.6 mg/dL (0.2-1); TOT PROT 5.5 g/dl (6.4-8.2)
[2023-04-21 07:40] LABS: ARTERIAL BLD GAS O2 SATURATION 96.7 % (95-98); ARTERIAL BLOOD GAS BASE EXCESS -0.1 mmol/L (-2-2); ARTERIAL BLOOD GAS PO2 81.2 mmHg (80-100); ARTERIAL BLOOD GAS pH 7.466 (7.350-7.450)
[2023-04-21] MEDS: MAGNESIUM 2GM/50ML STERILE WATER IVPB IVPB ONE (08:02)
[2023-04-22 06:09] LABS: ARTERIAL BLD GAS O2 SATURATION 97.4 % (95-98); ARTERIAL BLOOD GAS PO2 94.9 mmHg (80-100)
[2023-04-22 07:49] LABS: HEMATOCRIT 26.7 % (35.4-49); MCH 28.3 pg (25.7-33.7); MCHC 33.6 g/dl (32.0-35.9); MEAN PLT VOLUME 8.2 fl (7.5-11.1); PLATELET COUNT 57 10^3/uL (134-434); RBC 3.18 M/mm3 (4.00-5.60); RDW 16.6 % (11.9-15.9); WHITE BLOOD COUNT 7.3 K/mm3 (4.0-10.0)
[2023-04-22 08:05] LABS: CALCIUM 7.4 mg/dL (8.5-10.1)
[2023-04-22 08:06] LABS: BLOOD UREA NITROGEN 21.2 mg/dL (7-18); MAGNESIUM 1.8 mg/dL (1.8-2.4)
[2023-04-22 08:10] LABS: CREATININE 3.1 mg/dL (0.55-1.3); PHOSPHOROUS 4.6 mg/dL (2.5-4.9)
[2023-04-22] MEDS: MAGNESIUM SULF 50% (8.12 MEQ/2 ML-1 GM VIAL) IVPB ONE (09:24)
[2023-04-22 12:49] VITALS: BMI 38.9
[2023-04-23 06:28] LABS: ARTERIAL BLD GAS O2 SATURATION 94.5 % (95-98); ARTERIAL BLOOD GAS BASE EXCESS -3.7 mmol/L (-2-2); ARTERIAL BLOOD GAS PO2 71.2 mmHg (80-100); ARTERIAL BLOOD GAS pH 7.397 (7.350-7.450)
[2023-04-23 06:44] LABS: VENT MODE A/C; VENT RATE 20
[2023-04-23 07:29] LABS: BASO % 0.6 % (0-2.0); EOS % 2.7 % (0-4.5); HEMATOCRIT 25.7 % (35.4-49); HEMOGLOBIN 8.6 GM/dL (11.7-16.9); LYMPH % 13.2 % (8-40); MCH 28.4 pg (25.7-33.7); MCHC 33.7 g/dl (32.0-35.9); MEAN CELL VOLUME 84.2 fl (80-96); MEAN PLT VOLUME 7.3 fl (7.5-11.1); MONO % 13.6 % (3.8-10.2); NEUT % 69.9 % (42.8-82.8); PLATELET COUNT 51 10^3/uL (134-434); RBC 3.05 M/mm3 (4.00-5.60); RDW 17.1 % (11.9-15.9); WHITE BLOOD COUNT 5.4 K/mm3 (4.0-10.0)
[2023-04-23 07:41] LABS: POTASSIUM 4.1 mmol/L (3.5-5.1)
[2023-04-23 07:43] LABS: ALBUMIN 2.2 g/dl (3.4-5.0); CALCIUM 7.4 mg/dL (8.5-10.1)
[2023-04-23 07:44] LABS: BLOOD UREA NITROGEN 20.2 mg/dL (7-18); MAGNESIUM 1.9 mg/dL (1.8-2.4)
[2023-04-23 07:47] LABS: CREATININE 2.9 mg/dL (0.55-1.3); PHOSPHOROUS 5.2 mg/dL (2.5-4.9)
[2023-04-23 07:49] LABS: BILIRUBIN,TOTAL 1.8 mg/dL (0.2-1); TOT PROT 5.7 g/dl (6.4-8.2)
[2023-04-23] MEDS: LORazepam 2 MG/ML SDV VIAL IVPUSH PRN (09:51)
[2023-04-23 16:33] LABS: POTASSIUM 4.2 mmol/L (3.5-5.1)
[2023-04-23 16:34] LABS: CALCIUM 7.8 mg/dL (8.5-10.1)
[2023-04-23 16:35] LABS: BLOOD UREA NITROGEN 19.3 mg/dL (7-18)
[2023-04-23 16:38] LABS: CREATININE 2.7 mg/dL (0.55-1.3)
[2023-04-24 07:11] LABS: EPI CELLS 25 /uL (0-25.1); HYALINE CASTS 1 /uL (0-3.1); PH,URINE 5.5 (5.0-8.0); URINE APPEARANCE CLOUDY; URINE BACTERIA 18 /uL (0-1359); URINE BILIRUBIN NEGATIVE (NEGATIVE); URINE COLOR YELLOW; URINE GLUCOSE (UA) NEGATIVE (NEGATIVE); URINE KETONE NEGATIVE (NEGATIVE); URINE LEUK ESTERASE TRACE (NEGATIVE); URINE NITRITE NEGATIVE (NEGATIVE); URINE PROTEIN TRACE (NEGATIVE); URINE RBC 416 /uL (0-23.9); URINE UROBILINOGEN 0.2 mg/dL (0.2-1.0); URINE WBC 137 /uL (0-25.8)
[2023-04-24 07:16] LABS: HEMATOCRIT 24.3 % (35.4-49); MCHC 32.9 g/dl (32.0-35.9); MEAN CELL VOLUME 85.1 fl (80-96); MEAN PLT VOLUME 7.4 fl (7.5-11.1); PLATELET COUNT 52 10^3/uL (134-434); RBC 2.85 M/mm3 (4.00-5.60); RDW 17.3 % (11.9-15.9); WHITE BLOOD COUNT 3.5 K/mm3 (4.0-10.0)
[2023-04-24 07:28] LABS: POTASSIUM 4.3 mmol/L (3.5-5.1)
[2023-04-24 07:32] LABS: CALCIUM 7.8 mg/dL (8.5-10.1)
[2023-04-24 07:33] LABS: ALBUMIN 2.1 g/dl (3.4-5.0); MAGNESIUM 1.8 mg/dL (1.8-2.4)
[2023-04-24 07:36] LABS: CREATININE 2.5 mg/dL (0.55-1.3); PHOSPHOROUS 4.7 mg/dL (2.5-4.9)
[2023-04-24 07:37] LABS: BILIRUBIN,TOTAL 1.4 mg/dL (0.2-1); TOT PROT 5.5 g/dl (6.4-8.2)
[2023-04-24 09:24] LABS: ANISOCYTOSIS 2+; MACROCYTOSIS 0
[2023-04-24] MEDS: POLYETHYLENE GLYCOL (HEALTHYLAX) 3350 17 GM PACKET NGT SCH (12:43)
[2023-04-24] MEDS: SENNOSIDES 8.8 MG/5 ML SYRUP NGT SCH (21:17)
[2023-04-25] MEDS: THIAMINE HCL 200 MG/2 ML VIAL IVPB SCH (02:52)
[2023-04-25 07:18] LABS: BASO % 0.7 % (0-2.0); EOS % 4.2 % (0-4.5); HEMATOCRIT 25.3 % (35.4-49); HEMOGLOBIN 8.2 GM/dL (11.7-16.9); LYMPH % 15.4 % (8-40); MCH 27.9 pg (25.7-33.7); MCHC 32.3 g/dl (32.0-35.9); MEAN CELL VOLUME 86.5 fl (80-96); MEAN PLT VOLUME 7.3 fl (7.5-11.1); MONO % 18.9 % (3.8-10.2); NEUT % 60.8 % (42.8-82.8); PLATELET COUNT 53 10^3/uL (134-434); RBC 2.92 M/mm3 (4.00-5.60); RDW 16.7 % (11.9-15.9)
[2023-04-25 07:41] LABS: POTASSIUM 4.6 mmol/L (3.5-5.1)
[2023-04-25 07:42] LABS: BLOOD UREA NITROGEN 19.7 mg/dL (7-18)
[2023-04-25 07:43] LABS: CALCIUM 8.2 mg/dL (8.5-10.1)
[2023-04-25 07:44] LABS: ALBUMIN 2.2 g/dl (3.4-5.0); MAGNESIUM 1.8 mg/dL (1.8-2.4)
[2023-04-25 07:47] LABS: CREATININE 2.1 mg/dL (0.55-1.3); PHOSPHOROUS 4.8 mg/dL (2.5-4.9)
[2023-04-25 07:48] LABS: BILIRUBIN,TOTAL 1.1 mg/dL (0.2-1); TOT PROT 5.8 g/dl (6.4-8.2)
[2023-04-25] MEDS: ACETAMINOPHEN 1000 MG/100 ML BAG IVPB PRN (11:46)
[2023-04-26 07:33] LABS: POTASSIUM 5.2 mmol/L (3.5-5.1)
[2023-04-26 07:46] LABS: CALCIUM 8.2 mg/dL (8.5-10.1)
[2023-04-26 07:47] LABS: ALBUMIN 2.1 g/dl (3.4-5.0)
[2023-04-26 07:49] LABS: PHOSPHOROUS 5.5 mg/dL (2.5-4.9); TOT PROT 6.1 g/dl (6.4-8.2)
[2023-04-26 07:56] LABS: HEMATOCRIT 24.4 % (35.4-49); HEMOGLOBIN 8.1 GM/dL (11.7-16.9); MCH 28.8 pg (25.7-33.7); MCHC 33.2 g/dl (32.0-35.9); MEAN CELL VOLUME 86.8 fl (80-96); PLATELET COUNT 52 10^3/uL (134-434); RBC 2.82 M/mm3 (4.00-5.60); RDW 17.1 % (11.9-15.9); WHITE BLOOD COUNT 3.9 K/mm3 (4.0-10.0)
[2023-04-26 09:55] LABS: ANISOCYTOSIS 2+; MACROCYTOSIS 0
[2023-04-26] MEDS: CALCIUM ACETATE 667 MG CAPSULE (FP) PO SCH (11:55)
[2023-04-26] MEDS: SODIUM ZIRCONIUM CYCLOSILICATE (LOKELMA) 5 GM PACKET PO SCH (17:37)
[2023-04-27] MEDS ORDERED: fentaNYL CITRATE 250 MCG/5 ML VIAL ONE (00:23)
[2023-04-27 07:32] LABS: BASO % 0.5 % (0-2.0); EOS % 3.5 % (0-4.5); HEMOGLOBIN 7.7 GM/dL (11.7-16.9); LYMPH % 16.8 % (8-40); MCH 28.3 pg (25.7-33.7); MCHC 31.9 g/dl (32.0-35.9); MEAN CELL VOLUME 88.7 fl (80-96); MEAN PLT VOLUME 7.3 fl (7.5-11.1); NEUT % 60.2 % (42.8-82.8); PLATELET COUNT 60 10^3/uL (134-434); RBC 2.71 M/mm3 (4.00-5.60); RDW 17.5 % (11.9-15.9)
[2023-04-27 07:59] LABS: POTASSIUM 5.1 mmol/L (3.5-5.1)
[2023-04-27 08:05] LABS: ALBUMIN 2.2 g/dl (3.4-5.0); BLOOD UREA NITROGEN 22.6 mg/dL (7-18); CALCIUM 8.2 mg/dL (8.5-10.1)
[2023-04-27 08:06] LABS: MAGNESIUM 1.7 mg/dL (1.8-2.4)
[2023-04-27 08:07] LABS: CREATININE 1.9 mg/dL (0.55-1.3)
[2023-04-27 08:08] LABS: PHOSPHOROUS 5.1 mg/dL (2.5-4.9)
[2023-04-27 08:09] LABS: BILIRUBIN,TOTAL 0.8 mg/dL (0.2-1)
[2023-04-27] MEDS: MAGNESIUM SULF 50% (8.12 MEQ/2 ML-1 GM VIAL) IVPB ONE (08:33)
[2023-04-27] MEDS: ACETAMINOPHEN 1000 MG/100 ML BAG IVPB PRN (17:38)
[2023-04-28 07:02] LABS: BASO % 0.9 % (0-2.0); EOS % 4.6 % (0-4.5); HEMATOCRIT 22.9 % (35.4-49); HEMOGLOBIN 7.3 GM/dL (11.7-16.9); LYMPH % 23.4 % (8-40); MCH 28.4 pg (25.7-33.7); MEAN CELL VOLUME 88.8 fl (80-96); MEAN PLT VOLUME 7.1 fl (7.5-11.1); MONO % 15.7 % (3.8-10.2); NEUT % 55.4 % (42.8-82.8); PLATELET COUNT 69 10^3/uL (134-434); RBC 2.58 M/mm3 (4.00-5.60); RDW 17.5 % (11.9-15.9)
[2023-04-28 07:09] LABS: PH,URINE 5.5 (5.0-8.0); URINE APPEARANCE Error; URINE BILIRUBIN NEGATIVE (NEGATIVE); URINE COLOR YELLOW; URINE GLUCOSE (UA) NEGATIVE (NEGATIVE); URINE KETONE NEGATIVE (NEGATIVE); URINE LEUK ESTERASE NEGATIVE (NEGATIVE); URINE NITRITE NEGATIVE (NEGATIVE); URINE PROTEIN NEGATIVE (NEGATIVE); URINE UROBILINOGEN 0.2 mg/dL (0.2-1.0)
[2023-04-28 07:27] LABS: POTASSIUM 4.4 mmol/L (3.5-5.1)
[2023-04-28 07:32] LABS: CALCIUM 8.6 mg/dL (8.5-10.1)
[2023-04-28 07:33] LABS: ALBUMIN 2.2 g/dl (3.4-5.0); BLOOD UREA NITROGEN 24.3 mg/dL (7-18); MAGNESIUM 2.1 mg/dL (1.8-2.4)
[2023-04-28 07:35] LABS: PHOSPHOROUS 4.9 mg/dL (2.5-4.9)
[2023-04-28 07:36] LABS: BILIRUBIN,TOTAL 0.6 mg/dL (0.2-1); CREATININE 1.7 mg/dL (0.55-1.3)
[2023-04-28] MEDS: ACETAMINOPHEN 1000 MG/100 ML BAG IVPB STA (13:40)
[2023-04-29 06:59] LABS: ARTERIAL BLD GAS O2 SATURATION 90.5 % (95-98); ARTERIAL BLOOD GAS BASE EXCESS -3.7 mmol/L (-2-2); ARTERIAL BLOOD GAS PO2 60.3 mmHg (80-100); ARTERIAL BLOOD GAS pH 7.366 (7.350-7.450)
[2023-04-29 07:01] LABS: VENT MODE A/C; VENT RATE 20
[2023-04-29 08:10] LABS: POTASSIUM 4.6 mmol/L (3.5-5.1)
[2023-04-29 08:13] LABS: ALBUMIN 2.3 g/dl (3.4-5.0); CALCIUM 9.1 mg/dL (8.5-10.1)
[2023-04-29 08:14] LABS: BLOOD UREA NITROGEN 25.1 mg/dL (7-18)
[2023-04-29 08:16] LABS: CREATININE 1.7 mg/dL (0.55-1.3); PHOSPHOROUS 4.4 mg/dL (2.5-4.9)
[2023-04-29 08:18] LABS: BILIRUBIN,TOTAL 0.7 mg/dL (0.2-1); TOT PROT 6.3 g/dl (6.4-8.2)
[2023-04-29 08:30] LABS: BASO % 0.7 % (0-2.0); EOS % 2.4 % (0-4.5); HEMATOCRIT 23.5 % (35.4-49); HEMOGLOBIN 7.7 GM/dL (11.7-16.9); LYMPH % 17.1 % (8-40); MCH 28.8 pg (25.7-33.7); MCHC 32.5 g/dl (32.0-35.9); MEAN CELL VOLUME 88.4 fl (80-96); MEAN PLT VOLUME 7.5 fl (7.5-11.1); MONO % 11.5 % (3.8-10.2); NEUT % 68.3 % (42.8-82.8); PLATELET COUNT 66 10^3/uL (134-434); RBC 2.66 M/mm3 (4.00-5.60); RDW 17.6 % (11.9-15.9); WHITE BLOOD COUNT 4.6 K/mm3 (4.0-10.0)
[2023-04-29 10:26] VITALS: RESP 20
[2023-04-29 14:14] VITALS: BP 153/69; PULSE 86; TEMP 98
== END 2023-04-29 15:43 | disposition expired | DRG 870 ==
LOC: JER 21:34 → JERBED 22:04 → JICU 23:58
PROVIDERS: ADMIT Internal Medicine Pulmonary Disease; ATTEND Internal Medicine Pulmonary Disease
PROC: 5A1955Z Respiratory Ventilation, Greater than 96 Consecutive Hours (ICD-10-PCS; principal; 2023-04-19)
PROC: 02HV33Z Insertion of Infusion Device into Superior Vena Cava, Percutaneous Approach (ICD-10-PCS; 2023-04-20)
PROC: B548ZZA Ultrasonography of Superior Vena Cava, Guidance (ICD-10-PCS; 2023-04-20)
PROC: 03HY32Z Insertion of Monitoring Device into Upper Artery, Percutaneous Approach (ICD-10-PCS; 2023-04-20)
PROC: 4A133B1 Monitoring of Arterial Pressure, Peripheral, Percutaneous Approach (ICD-10-PCS; 2023-04-20)
PROC: 4A133J1 Monitoring of Arterial Pulse, Peripheral, Percutaneous Approach (ICD-10-PCS; 2023-04-20)
PROC: 30233N1 Transfusion of Nonautologous Red Blood Cells into Peripheral Vein, Percutaneous Approach (ICD-10-PCS; 2023-04-20)
DX: A41.9 Sepsis, unspecified organism (principal); J69.0 Pneumonitis due to inhalation of food and vomit; J96.01 Acute respiratory failure with hypoxia; R65.21 Severe sepsis with septic shock; G93.1 Anoxic brain damage, not elsewhere classified; N17.9 Acute kidney failure, unspecified; E87.1 Hypo-osmolality and hyponatremia; E87.29 Other acidosis; I46.9 Cardiac arrest, cause unspecified; I10 Essential (primary) hypertension; E78.5 Hyperlipidemia, unspecified; I25.10 Atherosclerotic heart disease of native coronary artery without angina pectoris; D50.9 Iron deficiency anemia, unspecified; I48.91 Unspecified atrial fibrillation; D69.6 Thrombocytopenia, unspecified; F10.20 Alcohol dependence, uncomplicated; G25.3 Myoclonus; F10.220 Alcohol dependence with intoxication, uncomplicated; I45.9 Conduction disorder, unspecified; K25.9 Gastric ulcer, unspecified as acute or chronic, without hemorrhage or perforation
CPT/HCPCS: 0241U-QW; 36415; 36430; 36600; 70450-TC; 71045-TC-FY; 72125-TC; 74018-TC-FY; 80048; 80053; 80307; 81003; 82550; 82570; 82803; 82962; 83605; 83735; 83935; 84100; 84300; 84439; 84443; 84484; 85025; 85027; 85379; 85610; 85730; 86022; 86850; 86900; 86901; 86922; 87040; 87070; 87086; 87186; 87205; 93005; 93010; 93306-TC; 94002; 99291; J0131; J1644; P9058